=== PATIENT | female | born 1960 | race Caucasian/White ===

== ENCOUNTER 2017-12-14 17:35 | Inpatient (IN) ==
[2017-12-15 05:29] LABS: Basophils # 0.1 10*3/uL (0.0-0.2); Basophils % 1.6 % (0.0-0.8); Eosinophils # 0.2 10*3/uL (0.0-0.87); Eosinophils % 3.9 % (0.00-10.9); Hematocrit 29.1 VOL% (35.7-47.0); Hemoglobin 9.7 GM/DL (12.0-16.0); Immature Granulocytes % 0.8 %; Immature Granulocytes Absolute 0.04 #; Lymphocytes # 1.2 10*3/uL (1.4-4.0); Lymphocytes % 23.3 % (21.3-54.2); Mean Corpuscular HGB Conc 33.3 GM/DL (32-36); Mean Corpuscular Hemoglobin 31 PG (27-34); Mean Corpuscular Volume 91.8 FL (87-102); Mean Platelet Volume 11.2 FL (9.6-12.0); Monocytes # 0.9 10*3/uL (0.11-0.8); Monocytes % 17.2 % (1.7-12.7); Neutrophils # 2.7 10*3/uL (1.4-7.4); Neutrophils % 53.2 % (38.7-73.9); Platelet Count 121 T/CUMM (130-400); Red Blood Count 3.17 MC/CUMM (3.8-5.5); White Blood Count 5.1 T/CUMM (4-12)
[2017-12-15 06:03] LABS: Blood Urea Nitrogen 16 MG/DL (7-18); Calcium 8.7 MG/DL (8.5-10.1); Glucose 144 MG/DL (74-106); Osmolality,Calculated 284.3 MOS/KG (273-304); Potassium 4.1 MMOL/L (3.5-5.1); Sodium 141 MMOL/L (136-145); Troponin I Only < 0.015 NG/ML (0.00-0.045)
[2017-12-15 06:07] LABS: Band Neutrophils 5 % (0-10); Eosinophils 2 % (0-10); Lymphocytes 23 % (20-55); Myelocytes 1 %; Segmented Neutrophils 60 % (50-85); Total Cells Counted 100
[2017-12-15 06:08] LABS: Anisocytosis 1+; Platelet Estimate Adequate
[2017-12-15 09:49] LABS: INR 1.1
[2017-12-15 10:14] LABS: Albumin 3.4 G/DL (3.4-5.0); Bilirubin,Direct 0.33 MG/DL (0.0-0.20); Bilirubin,Total 1.3 MG/DL (0.2-1.0); Total Protein 7.3 G/DL (6.4-8.3)
[2017-12-16 06:09] LABS: Albumin 3.3 G/DL (3.4-5.0); Bilirubin,Total 1.1 MG/DL (0.2-1.0); Osmolality,Calculated 282.4 MOS/KG (273-304); Potassium 3.8 MMOL/L (3.5-5.1); Total Protein 7.1 G/DL (6.4-8.3)
[2017-12-16 18:48] LABS: % Iron Saturation 23.8 % (18-50)
[2017-12-16 19:43] LABS: Hepatitis A Ab IgM Quant 0.29 Index; Hepatitis A Ab IgM Result Negative (Negative); Hepatitis B Core IgM Quant < 0.05 Index; Hepatitis B Core IgM Result Negative (Negative); Hepatitis B Surface Ag Quant < 0.10 Index; Hepatitis B Surface Ag Result Negative (Negative); Hepatitis C Virus Ab Quant 0.03 Index; Hepatitis C Virus Ab Result Negative (Negative)
[2017-12-17 09:50] LABS: Eosinophils # 0.1 10*3/uL (0.0-0.87); Eosinophils % 3.1 % (0.00-10.9); Hematocrit 29.8 VOL% (35.7-47.0); Hemoglobin 9.8 GM/DL (12.0-16.0); Immature Granulocytes Absolute 0.04 #; Lymphocytes # 0.9 10*3/uL (1.4-4.0); Lymphocytes % 20.7 % (21.3-54.2); Mean Corpuscular HGB Conc 32.9 GM/DL (32-36); Mean Corpuscular Hemoglobin 30 PG (27-34); Mean Corpuscular Volume 92.3 FL (87-102); Mean Platelet Volume 11.2 FL (9.6-12.0); Monocytes # 0.7 10*3/uL (0.11-0.8); Neutrophils # 2.5 10*3/uL (1.4-7.4); Neutrophils % 58.2 % (38.7-73.9); Platelet Count 102 T/CUMM (130-400); Red Blood Count 3.23 MC/CUMM (3.8-5.5); Red Cell Distribution Width 15.2 % (9.3-17.3); White Blood Count 4.2 T/CUMM (4-12)
[2017-12-17 10:17] LABS: Band Neutrophils 5 % (0-10); Eosinophils 2 % (0-10); Lymphocytes 21 % (20-55); Segmented Neutrophils 58 % (50-85); Total Cells Counted 100
[2017-12-17 10:18] LABS: Platelet Estimate Normal
[2017-12-17 10:20] LABS: Polychromasia Few
[2017-12-17 10:21] LABS: Spherocytes 1+
[2017-12-18 00:40] LABS: Basophils % 0.7 % (0.0-0.8); Eosinophils % 0.2 % (0.00-10.9); Hematocrit 29.4 VOL% (35.7-47.0); Hemoglobin 9.8 GM/DL (12.0-16.0); Immature Granulocytes % 0.5 %; Immature Granulocytes Absolute 0.03 #; Lymphocytes # 0.3 10*3/uL (1.4-4.0); Lymphocytes % 4.9 % (21.3-54.2); Mean Corpuscular HGB Conc 33.3 GM/DL (32-36); Mean Corpuscular Hemoglobin 30 PG (27-34); Mean Corpuscular Volume 90.2 FL (87-102); Mean Platelet Volume 11.9 FL (9.6-12.0); Monocytes # 0.6 10*3/uL (0.11-0.8); Monocytes % 9.5 % (1.7-12.7); Neutrophils # 4.9 10*3/uL (1.4-7.4); Neutrophils % 84.2 % (38.7-73.9); Platelet Count 101 T/CUMM (130-400); Red Blood Count 3.26 MC/CUMM (3.8-5.5); Red Cell Distribution Width 15.5 % (9.3-17.3); White Blood Count 5.8 T/CUMM (4-12)
[2017-12-18 00:53] LABS: Calcium 8.8 MG/DL (8.5-10.1); Osmolality,Calculated 284.3 MOS/KG (273-304); Potassium 3.8 MMOL/L (3.5-5.1)
[2017-12-18 00:59] LABS: Lactic Acid 1.3 MMOL/L (0.4-2.0)
[2017-12-18 01:25] LABS: ABG Base Excess -2.5 MMOL/L (-2.5-2.5); ABG HCO3 21.9 MMOL/L (20-26); ABG PCO2 34.4 MM HG (35-48); ABG PH 7.407 (7.35-7.45); ABG PO2 41.6 MM HG (80-95); ABG TCO2 19.8 MMOL/L (23-27); Allen Test Positive; Pt O2 Delivery Device Room Air
[2017-12-18 01:59] LABS: Band Neutrophils 2 % (0-10); Lymphocytes 10 % (20-55); Segmented Neutrophils 87 % (50-85); Total Cells Counted 100
[2017-12-18 02:00] LABS: Platelet Estimate Decreased
[2017-12-18 02:23] LABS: ABG Base Excess -3.5 MMOL/L (-2.5-2.5); ABG HCO3 21.5 MMOL/L (20-26); ABG Oxygen Saturation 97.3 % (95-100); ABG PH 7.441 (7.35-7.45); ABG PO2 85.4 MM HG (80-95)
[2017-12-18 04:30] LABS: Apearance,Urine CLEAR (Clear); Bacteria,Urine Occasional /HPF (Few); Bilirubin,Urine Negative (Negative); Blood, Urine Negative (Negative); Glucose,Urine (UA) Negative (Negative); Ketones,Urine Negative (Negative); Mucus,Urine Occasional /LPF (Occasional); Nitrite,Urine Negative (Negative); Protein,Urine Negative; RBC,Urine <1 /HPF (0-4); Squamous Epithelial Cell,Urine Occasional /HPF (0-10); Urine Color Yellow (Yellow); Urine Specific Gravity 1.014 (1.001-1.035); Urine Urobilinogen < 2.0 EU/DL (0.2-1.0); WBC,Urine 1 /HPF (0-6)
[2017-12-18 05:42] LABS: Basophils % 0.7 % (0.0-0.8); Hematocrit 28.3 VOL% (35.7-47.0); Hemoglobin 9.4 GM/DL (12.0-16.0); Immature Granulocytes % 0.9 %; Immature Granulocytes Absolute 0.05 #; Lymphocytes # 0.3 10*3/uL (1.4-4.0); Mean Corpuscular HGB Conc 33.2 GM/DL (32-36); Mean Corpuscular Hemoglobin 30 PG (27-34); Mean Corpuscular Volume 90.7 FL (87-102); Mean Platelet Volume 11.2 FL (9.6-12.0); Monocytes # 0.6 10*3/uL (0.11-0.8); Monocytes % 10.4 % (1.7-12.7); Neutrophils # 4.4 10*3/uL (1.4-7.4); Red Blood Count 3.12 MC/CUMM (3.8-5.5); Red Cell Distribution Width 15.4 % (9.3-17.3); White Blood Count 5.4 T/CUMM (4-12)
[2017-12-18 05:46] LABS: Platelet Count 93 T/CUMM (130-400)
[2017-12-18 06:00] LABS: Calcium 8.8 MG/DL (8.5-10.1); Osmolality,Calculated 285.3 MOS/KG (273-304); Potassium 3.4 MMOL/L (3.5-5.1)
[2017-12-18 06:06] LABS: Hypochromasia 1+; Ovalocytes Slight; Platelet Estimate Decreased
[2017-12-18 12:01] LABS: ABG Base Excess -7.2 MMOL/L (-2.5-2.5); ABG HCO3 18.6 MMOL/L (20-26); ABG PCO2 32.5 MM HG (35-48); ABG PH 7.344 (7.35-7.45); ABG TCO2 16.3 MMOL/L (23-27)
[2017-12-19 04:54] LABS: Basophils # 0.1 10*3/uL (0.0-0.2); Eosinophils % 0.2 % (0.00-10.9); Hematocrit 28.3 VOL% (35.7-47.0); Hemoglobin 9.4 GM/DL (12.0-16.0); Immature Granulocytes Absolute 0.05 #; Lymphocytes # 0.4 10*3/uL (1.4-4.0); Lymphocytes % 7.4 % (21.3-54.2); Mean Corpuscular HGB Conc 33.2 GM/DL (32-36); Mean Corpuscular Hemoglobin 30 PG (27-34); Mean Corpuscular Volume 90.4 FL (87-102); Mean Platelet Volume 11.4 FL (9.6-12.0); Monocytes # 0.8 10*3/uL (0.11-0.8); Monocytes % 15.9 % (1.7-12.7); Neutrophils # 3.6 10*3/uL (1.4-7.4); Neutrophils % 74.5 % (38.7-73.9); Red Blood Count 3.13 MC/CUMM (3.8-5.5); Red Cell Distribution Width 15.6 % (9.3-17.3); White Blood Count 4.8 T/CUMM (4-12)
[2017-12-19 04:59] LABS: ABG Base Excess -5.6 MMOL/L (-2.5-2.5); ABG HCO3 19.8 MMOL/L (20-26); ABG PCO2 33.4 MM HG (35-48); ABG PH 7.364 (7.35-7.45); ABG TCO2 17.5 MMOL/L (23-27); Allen Test Positive; Pt O2 Delivery Device Ventilator
[2017-12-19 04:59] LABS: Platelet Count 89 T/CUMM (130-400)
[2017-12-19 05:14] LABS: Band Neutrophils 3 % (0-10); Hypochromasia 1+; Lymphocytes 6 % (20-55); Platelet Estimate Decreased; Segmented Neutrophils 76 % (50-85); Total Cells Counted 100
[2017-12-19 05:18] LABS: Bilirubin,Total 1.9 MG/DL (0.2-1.0); Calcium 8.4 MG/DL (8.5-10.1); Osmolality,Calculated 292.8 MOS/KG (273-304); Potassium 3.3 MMOL/L (3.5-5.1); Total Protein 6.6 G/DL (6.4-8.3)
[2017-12-20 04:25] LABS: ABG Base Excess -4.8 MMOL/L (-2.5-2.5); ABG HCO3 18.9 MMOL/L (20-26); ABG Oxygen Saturation 98.6 % (95-100); ABG PH 7.417 (7.35-7.45); ABG PO2 171.7 MM HG (80-95); ABG TCO2 19.8 MMOL/L (23-27); Allen Test Positive; Pt O2 Delivery Device Ventilator
[2017-12-20 05:15] LABS: Basophils % 0.5 % (0.0-0.8); Eosinophils # 0.1 10*3/uL (0.0-0.87); Hematocrit 27.3 VOL% (35.7-47.0); Hemoglobin 9.2 GM/DL (12.0-16.0); Immature Granulocytes % 0.7 %; Immature Granulocytes Absolute 0.03 #; Lymphocytes # 0.9 10*3/uL (1.4-4.0); Lymphocytes % 21.7 % (21.3-54.2); Mean Corpuscular HGB Conc 33.7 GM/DL (32-36); Mean Corpuscular Hemoglobin 31 PG (27-34); Mean Platelet Volume 11.3 FL (9.6-12.0); Monocytes # 0.7 10*3/uL (0.11-0.8); Monocytes % 16.3 % (1.7-12.7); NRBC # 0.03 10*3/uL; Neutrophils # 2.4 10*3/uL (1.4-7.4); Neutrophils % 58.8 % (38.7-73.9); White Blood Count 4.1 T/CUMM (4-12)
[2017-12-20 05:22] LABS: Platelet Count 89 T/CUMM (130-400)
[2017-12-20 05:38] LABS: Calcium 8.2 MG/DL (8.5-10.1); Osmolality,Calculated 294.4 MOS/KG (273-304); Potassium 3.3 MMOL/L (3.5-5.1)
[2017-12-20 05:49] LABS: Band Neutrophils 9 % (0-10); Eosinophils 2 % (0-10); Lymphocytes 17 % (20-55); Metamyelocytes 2 %; Segmented Neutrophils 54 % (50-85); Total Cells Counted 100
[2017-12-20 05:50] LABS: Hypochromasia Slight; Platelet Estimate Decreased; Polychromasia Few
[2017-12-20 07:40] LABS: ABG Base Excess -4.1 MMOL/L (-2.5-2.5); ABG Oxygen Saturation 99.8 % (95-100); ABG PCO2 34.2 MM HG (35-48); ABG PH 7.382 (7.35-7.45); ABG TCO2 18.7 MMOL/L (23-27); Pt O2 Delivery Device Ventilator
[2017-12-20 08:58] LABS: ABG Base Excess -4.9 MMOL/L (-2.5-2.5); ABG HCO3 20.4 MMOL/L (20-26); ABG PCO2 35.7 MM HG (35-48); ABG PH 7.358 (7.35-7.45); ABG TCO2 18.5 MMOL/L (23-27); Allen Test Positive
[2017-12-20 17:41] LABS: Calcium 8.4 MG/DL (8.5-10.1); Osmolality,Calculated 294.4 MOS/KG (273-304); Potassium 3.8 MMOL/L (3.5-5.1)
[2017-12-21 03:51] LABS: Basophils % 0.5 % (0.0-0.8); Eosinophils # 0.1 10*3/uL (0.0-0.87); Eosinophils % 2.3 % (0.00-10.9); Hematocrit 27.7 VOL% (35.7-47.0); Hemoglobin 9.2 GM/DL (12.0-16.0); Immature Granulocytes % 0.7 %; Immature Granulocytes Absolute 0.04 #; Lymphocytes # 0.8 10*3/uL (1.4-4.0); Lymphocytes % 14.6 % (21.3-54.2); Mean Corpuscular HGB Conc 33.2 GM/DL (32-36); Mean Corpuscular Hemoglobin 30 PG (27-34); Mean Corpuscular Volume 90.2 FL (87-102); Mean Platelet Volume 11.5 FL (9.6-12.0); Monocytes # 0.9 10*3/uL (0.11-0.8); Monocytes % 15.3 % (1.7-12.7); NRBC # 0.02 10*3/uL; Neutrophils # 3.9 10*3/uL (1.4-7.4); Neutrophils % 66.6 % (38.7-73.9); Red Blood Count 3.07 MC/CUMM (3.8-5.5); Red Cell Distribution Width 15.9 % (9.3-17.3); White Blood Count 5.8 T/CUMM (4-12)
[2017-12-21 03:53] LABS: Platelet Count 91 T/CUMM (130-400)
[2017-12-21 04:15] LABS: Calcium 8.5 MG/DL (8.5-10.1); Osmolality,Calculated 290.6 MOS/KG (273-304); Potassium 3.7 MMOL/L (3.5-5.1)
[2017-12-22 04:16] LABS: Basophils % 0.6 % (0.0-0.8); Eosinophils # 0.2 10*3/uL (0.0-0.87); Hemoglobin 8.4 GM/DL (12.0-16.0); Immature Granulocytes % 1.1 %; Immature Granulocytes Absolute 0.07 #; Lymphocytes # 1.2 10*3/uL (1.4-4.0); Lymphocytes % 19.6 % (21.3-54.2); Mean Corpuscular HGB Conc 32.3 GM/DL (32-36); Mean Corpuscular Hemoglobin 30 PG (27-34); Mean Corpuscular Volume 92.9 FL (87-102); Mean Platelet Volume 11.6 FL (9.6-12.0); Monocytes % 16.4 % (1.7-12.7); Neutrophils # 3.7 10*3/uL (1.4-7.4); Neutrophils % 59.3 % (38.7-73.9); Red Cell Distribution Width 15.7 % (9.3-17.3); White Blood Count 6.3 T/CUMM (4-12)
[2017-12-22 04:42] LABS: Calcium 8.1 MG/DL (8.5-10.1); Osmolality,Calculated 285.1 MOS/KG (273-304); Potassium 3.1 MMOL/L (3.5-5.1)
[2017-12-22 04:58] LABS: Platelet Count 96 T/CUMM (130-400)
[2017-12-22 09:03] LABS: Eosinophils 7 % (0-10); Lymphocytes 14 % (20-55); Platelet Estimate Decreased; Polychromasia Slight; Segmented Neutrophils 66 % (50-85); Total Cells Counted 100
[2017-12-23 04:53] LABS: Basophils % 0.5 % (0.0-0.8); Eosinophils # 0.2 10*3/uL (0.0-0.87); Eosinophils % 3.6 % (0.00-10.9); Hematocrit 24.7 VOL% (35.7-47.0); Immature Granulocytes % 1.4 %; Immature Granulocytes Absolute 0.08 #; Lymphocytes # 1.2 10*3/uL (1.4-4.0); Lymphocytes % 19.8 % (21.3-54.2); Mean Corpuscular HGB Conc 32.4 GM/DL (32-36); Mean Corpuscular Hemoglobin 30 PG (27-34); Mean Corpuscular Volume 93.6 FL (87-102); Mean Platelet Volume 11.5 FL (9.6-12.0); Monocytes # 0.8 10*3/uL (0.11-0.8); Monocytes % 13.9 % (1.7-12.7); Neutrophils # 3.6 10*3/uL (1.4-7.4); Neutrophils % 60.8 % (38.7-73.9); Platelet Count 102 T/CUMM (130-400); Red Blood Count 2.64 MC/CUMM (3.8-5.5); Red Cell Distribution Width 15.9 % (9.3-17.3); White Blood Count 5.9 T/CUMM (4-12)
[2017-12-23 05:40] LABS: Calcium 8.3 MG/DL (8.5-10.1); Osmolality,Calculated 287.8 MOS/KG (273-304); Potassium 3.7 MMOL/L (3.5-5.1)
[2017-12-24 03:45] LABS: Basophils % 0.6 % (0.0-0.8); Eosinophils # 0.3 10*3/uL (0.0-0.87); Eosinophils % 3.6 % (0.00-10.9); Hematocrit 27.6 VOL% (35.7-47.0); Hemoglobin 9.5 GM/DL (12.0-16.0); Immature Granulocytes % 2.1 %; Immature Granulocytes Absolute 0.15 #; Lymphocytes # 1.2 10*3/uL (1.4-4.0); Lymphocytes % 16.3 % (21.3-54.2); Mean Corpuscular HGB Conc 34.4 GM/DL (32-36); Mean Corpuscular Hemoglobin 31 PG (27-34); Mean Corpuscular Volume 89.3 FL (87-102); Mean Platelet Volume 11.4 FL (9.6-12.0); Monocytes % 13.6 % (1.7-12.7); Neutrophils # 4.6 10*3/uL (1.4-7.4); Neutrophils % 63.8 % (38.7-73.9); Platelet Count 120 T/CUMM (130-400); Red Blood Count 3.09 MC/CUMM (3.8-5.5); Red Cell Distribution Width 15.4 % (9.3-17.3); White Blood Count 7.2 T/CUMM (4-12)
[2017-12-24 04:15] LABS: Calcium 8.4 MG/DL (8.5-10.1); Potassium 3.4 MMOL/L (3.5-5.1)
[2017-12-25 04:18] LABS: Basophils # 0.1 10*3/uL (0.0-0.2); Basophils % 0.7 % (0.0-0.8); Eosinophils # 0.2 10*3/uL (0.0-0.87); Eosinophils % 3.5 % (0.00-10.9); Hematocrit 27.9 VOL% (35.7-47.0); Hemoglobin 9.3 GM/DL (12.0-16.0); Immature Granulocytes % 3.4 %; Immature Granulocytes Absolute 0.23 #; Lymphocytes # 1.2 10*3/uL (1.4-4.0); Lymphocytes % 17.6 % (21.3-54.2); Mean Corpuscular HGB Conc 33.3 GM/DL (32-36); Mean Corpuscular Hemoglobin 31 PG (27-34); Mean Corpuscular Volume 91.8 FL (87-102); Mean Platelet Volume 11.5 FL (9.6-12.0); Monocytes # 0.9 10*3/uL (0.11-0.8); Monocytes % 13.3 % (1.7-12.7); Neutrophils # 4.2 10*3/uL (1.4-7.4); Neutrophils % 61.5 % (38.7-73.9); Platelet Count 130 T/CUMM (130-400); Red Blood Count 3.04 MC/CUMM (3.8-5.5); Red Cell Distribution Width 15.9 % (9.3-17.3); White Blood Count 6.8 T/CUMM (4-12)
[2017-12-25 04:39] LABS: Calcium 8.1 MG/DL (8.5-10.1); Osmolality,Calculated 283.1 MOS/KG (273-304); Potassium 3.4 MMOL/L (3.5-5.1)
[2017-12-25 07:57] LABS: ABG Base Excess -6.7 MMOL/L (-2.5-2.5); ABG PCO2 35.6 MM HG (35-48); ABG PH 7.326 (7.35-7.45); Ionized Calcium Arterial 1.23 MMOL/L (1.21-1.46); Potassium Heart/CVR 3.6 MMOL/L (3.5-5.1)
[2017-12-25 07:58] LABS: Glucose Heart Surgery 122 MG/DL (74-106); Hematocrit Heart Surgery 31.4 PERCENT (37-47); Hemoglobin Heart Surgery 10.1 G/DL (12.0-16.0); PCO2 Patient Temp Arterial 35.6 MMHG; PH Patient Temp Arterial 7.326; Patient Temperature 37 CELCIUS; Sodium Heart/CVR 140 MMOL/L (135-145)
[2017-12-25 08:38] LABS: Amorphous Crystals,Urine Occasional /HPF (Few); Apearance,Urine CLOUDY (Clear); Bilirubin,Urine Negative (Negative); Blood, Urine Negative (Negative); Glucose,Urine (UA) Negative (Negative); Ketones,Urine Negative (Negative); Mucus,Urine Occasional /LPF (Occasional); Nitrite,Urine Negative (Negative); Protein,Urine Negative; Squamous Epithelial Cell,Urine Occasional /HPF (0-10); Urine Color Yellow (Yellow); Urine Specific Gravity 1.015 (1.001-1.035); Urine Urobilinogen < 2.0 EU/DL (0.2-1.0); WBC,Urine 1 /HPF (0-6)
[2017-12-25 08:50] LABS: Hematocrit Heart Surgery 18.1 PERCENT (37-47); PCO2 Patient Temp Venous 30.7 MM HG; PH Patient Temp Venous 7.434; Potassium Heart/CVR 4.5 MMOL/L (3.5-5.1); VBG Base Excess -3.1 MEQ/L (0-4); VBG HCO3 21.6 MEQ/L (24-28); VBG Oxygen Saturation 82.2 %; VBG PCO2 33.8 MMHG (41-51); VBG PH 7.405; VBG PO2 46.9 MMHG (17-40)
[2017-12-25 08:51] LABS: Hemoglobin Heart Surgery 5.7 G/DL (12.0-16.0)
[2017-12-25 09:19] LABS: Hemoglobin Heart Surgery 7.8 G/DL (12.0-16.0); PCO2 Patient Temp Venous 29.7 MM HG; PH Patient Temp Venous 7.477; PO2 Patient Temp Venous 49.8 MM HG; VBG Base Excess -1.9 MEQ/L (0-4); VBG HCO3 22.1 MEQ/L (24-28); VBG PCO2 33.9 MMHG (41-51); VBG PH 7.432; VBG PO2 61.3 MMHG (17-40)
[2017-12-25 09:50] LABS: Hematocrit Heart Surgery 27.9 PERCENT (37-47); PCO2 Patient Temp Venous 30.9 MM HG; PH Patient Temp Venous 7.391; PO2 Patient Temp Venous 50.2 MM HG; Potassium Heart/CVR 4.2 MMOL/L (3.5-5.1); VBG Base Excess -5.4 MEQ/L (0-4); VBG HCO3 19.8 MEQ/L (24-28); VBG Oxygen Saturation 89.6 %; VBG PCO2 35.7 MMHG (41-51); VBG PH 7.349; VBG PO2 61.2 MMHG (17-40)
[2017-12-25 10:18] LABS: Hematocrit Heart Surgery 27.2 PERCENT (37-47); Hemoglobin Heart Surgery 8.7 G/DL (12.0-16.0); PH Patient Temp Venous 7.332; Potassium Heart/CVR 4.5 MMOL/L (3.5-5.1); VBG Base Excess -5.3 MEQ/L (0-4); VBG HCO3 19.8 MEQ/L (24-28); VBG Oxygen Saturation 79.4 %; VBG PH 7.332
[2017-12-25 10:58] LABS: ABG Base Excess -4.3 MMOL/L (-2.5-2.5); ABG HCO3 20.8 MMOL/L (20-26); ABG PH 7.356 (7.35-7.45); ABG TCO2 19.5 MMOL/L (23-27); Glucose Heart Surgery 289 MG/DL (74-106); Hemoglobin Heart Surgery 7.7 G/DL (12.0-16.0); PH Patient Temp Arterial 7.356; Patient Temperature 37 CELCIUS; Potassium Heart/CVR 4.1 MMOL/L (3.5-5.1); Sodium Heart/CVR 139 MMOL/L (135-145)
[2017-12-25 13:01] LABS: ABG Base Excess -3.2 MMOL/L (-2.5-2.5); ABG HCO3 21.7 MMOL/L (20-26); ABG Oxygen Saturation 98.7 % (95-100); ABG PCO2 37.1 MM HG (35-48); ABG PH 7.372 (7.35-7.45); ABG TCO2 19.4 MMOL/L (23-27); Glucose Heart Surgery 198 MG/DL (74-106); Hematocrit Heart Surgery 34.4 PERCENT (37-47); Hemoglobin Heart Surgery 11.1 G/DL (12.0-16.0); Potassium Heart/CVR 3.4 MMOL/L (3.5-5.1)
[2017-12-25 13:07] LABS: Basophils % 0.4 % (0.0-0.8); Eosinophils # 0.1 10*3/uL (0.0-0.87); Eosinophils % 0.6 % (0.00-10.9); Hematocrit 21.6 VOL% (35.7-47.0); Hemoglobin 7.2 GM/DL (12.0-16.0); Immature Granulocytes % 5.3 %; Immature Granulocytes Absolute 0.54 #; Lymphocytes # 0.6 10*3/uL (1.4-4.0); Lymphocytes % 5.8 % (21.3-54.2); Mean Corpuscular HGB Conc 33.3 GM/DL (32-36); Mean Corpuscular Hemoglobin 31 PG (27-34); Mean Corpuscular Volume 91.5 FL (87-102); Mean Platelet Volume 10.8 FL (9.6-12.0); Monocytes # 1.1 10*3/uL (0.11-0.8); Monocytes % 11.1 % (1.7-12.7); Neutrophils # 7.8 10*3/uL (1.4-7.4); Neutrophils % 76.8 % (38.7-73.9); Platelet Count 117 T/CUMM (130-400); Red Blood Count 2.36 MC/CUMM (3.8-5.5); Red Cell Distribution Width 15.8 % (9.3-17.3); White Blood Count 10.1 T/CUMM (4-12)
[2017-12-25 13:21] LABS: Blood Urea Nitrogen 11 MG/DL (7-18); Calcium 9.7 MG/DL (8.5-10.1); Glucose 195 MG/DL (74-106); Osmolality,Calculated 289.8 MOS/KG (273-304); Potassium 3.4 MMOL/L (3.5-5.1); Sodium 144 MMOL/L (136-145)
[2017-12-25 13:25] LABS: Lactic Acid 4.2 MMOL/L (0.4-2.0)
[2017-12-25 13:33] LABS: Eosinophils 2 % (0-10); Lymphocytes 7 % (20-55); Segmented Neutrophils 81 % (50-85); Total Cells Counted 100
[2017-12-25 13:34] LABS: Anisocytosis Slight; Hypochromasia Slight; INR 1.4; PT Patient Result 14.4 SECS; Partial Thromboplastin Time 27.4 SECS (0-40); Platelet Estimate Adequate
[2017-12-25 15:02] LABS: ABG Base Excess -3.4 MMOL/L (-2.5-2.5); ABG HCO3 21.5 MMOL/L (20-26); ABG Oxygen Saturation 95.8 % (95-100); ABG PCO2 34.3 MM HG (35-48); ABG PH 7.395 (7.35-7.45); ABG PO2 78.8 MM HG (80-95); ABG TCO2 19.9 MMOL/L (23-27); Glucose Heart Surgery 166 MG/DL (74-106); Hematocrit Heart Surgery 21.1 PERCENT (37-47); Hemoglobin Heart Surgery 6.7 G/DL (12.0-16.0); Potassium Heart/CVR 3.8 MMOL/L (3.5-5.1)
[2017-12-25 17:08] LABS: ABG Base Excess -3.1 MMOL/L (-2.5-2.5); ABG HCO3 20.8 MMOL/L (20-26); ABG Oxygen Saturation 93.6 % (95-100); ABG PCO2 31.9 MM HG (35-48); ABG PH 7.432 (7.35-7.45); ABG PO2 79.3 MM HG (80-95); ABG TCO2 21.8 MMOL/L (23-27); Glucose Heart Surgery 124 MG/DL (74-106); Hemoglobin Heart Surgery 7.1 G/DL (12.0-16.0); Potassium Heart/CVR 3.3 MMOL/L (3.5-5.1)
[2017-12-25 17:44] LABS: Lactic Acid 3.5 MMOL/L (0.4-2.0)
[2017-12-25 21:44] LABS: ABG Base Excess -3.4 MMOL/L (-2.5-2.5); ABG HCO3 21.5 MMOL/L (20-26); ABG Oxygen Saturation 96.2 % (95-100); ABG PH 7.371 (7.35-7.45); ABG PO2 80.9 MM HG (80-95); ABG TCO2 20.1 MMOL/L (23-27); Glucose Heart Surgery 97 MG/DL (74-106); Hematocrit Heart Surgery 24.5 PERCENT (37-47); Hemoglobin Heart Surgery 7.9 G/DL (12.0-16.0); Potassium Heart/CVR 4.1 MMOL/L (3.5-5.1)
[2017-12-26 04:25] LABS: Basophils % 0.1 % (0.0-0.8); Hematocrit 23.4 VOL% (35.7-47.0); Hemoglobin 7.7 GM/DL (12.0-16.0); Immature Granulocytes Absolute 0.14 #; Lymphocytes # 0.7 10*3/uL (1.4-4.0); Mean Corpuscular HGB Conc 32.9 GM/DL (32-36); Mean Corpuscular Hemoglobin 30 PG (27-34); Mean Corpuscular Volume 91.4 FL (87-102); Mean Platelet Volume 11.7 FL (9.6-12.0); Monocytes % 7.4 % (1.7-12.7); Neutrophils # 11.6 10*3/uL (1.4-7.4); Neutrophils % 86.5 % (38.7-73.9); Red Blood Count 2.56 MC/CUMM (3.8-5.5); White Blood Count 13.4 T/CUMM (4-12)
[2017-12-26 04:27] LABS: Platelet Count 88 T/CUMM (130-400)
[2017-12-26 04:59] LABS: Calcium 8.6 MG/DL (8.5-10.1)
[2017-12-26 05:08] LABS: Hypochromasia Slight
[2017-12-26 05:09] LABS: Microcytosis 2+; Ovalocytes Few; Platelet Estimate Decreased
[2017-12-27 05:27] LABS: Basophils % 0.2 % (0.0-0.8); Eosinophils % 0.2 % (0.00-10.9); Hematocrit 20.9 VOL% (35.7-47.0); Hemoglobin 6.9 GM/DL (12.0-16.0); Immature Granulocytes % 2.2 %; Immature Granulocytes Absolute 0.26 #; Lymphocytes # 1.1 10*3/uL (1.4-4.0); Lymphocytes % 9.2 % (21.3-54.2); Mean Corpuscular Hemoglobin 31 PG (27-34); Mean Corpuscular Volume 93.3 FL (87-102); Mean Platelet Volume 12.4 FL (9.6-12.0); Monocytes # 1.8 10*3/uL (0.11-0.8); Monocytes % 14.7 % (1.7-12.7); NRBC # 0.03 10*3/uL; Neutrophils # 8.9 10*3/uL (1.4-7.4); Neutrophils % 73.5 % (38.7-73.9); Platelet Count 80 T/CUMM (130-400); Red Blood Count 2.24 MC/CUMM (3.8-5.5); Red Cell Distribution Width 16.2 % (9.3-17.3); White Blood Count 12.1 T/CUMM (4-12)
[2017-12-27 05:45] LABS: Calcium 7.6 MG/DL (8.5-10.1); Osmolality,Calculated 293.8 MOS/KG (273-304); Potassium 3.8 MMOL/L (3.5-5.1)
[2017-12-27 05:49] LABS: Albumin 2.4 G/DL (3.4-5.0); Calcium 7.6 MG/DL (8.5-10.1); Potassium 3.8 MMOL/L (3.5-5.1); Total Protein 5.2 G/DL (6.4-8.3)
[2017-12-27 06:01] LABS: Band Neutrophils 6 % (0-10); Hypochromasia 1+; Lymphocytes 12 % (20-55); Ovalocytes Slight; Platelet Estimate Decreased; Segmented Neutrophils 73 % (50-85); Total Cells Counted 100
[2017-12-27 06:02] LABS: Microcytosis 1+
[2017-12-28 05:02] LABS: Basophils % 0.3 % (0.0-0.8); Eosinophils # 0.1 10*3/uL (0.0-0.87); Eosinophils % 0.7 % (0.00-10.9); Hematocrit 27.1 VOL% (35.7-47.0); Immature Granulocytes % 1.5 %; Immature Granulocytes Absolute 0.18 #; Lymphocytes # 1.1 10*3/uL (1.4-4.0); Lymphocytes % 9.1 % (21.3-54.2); Mean Corpuscular HGB Conc 33.2 GM/DL (32-36); Mean Corpuscular Hemoglobin 30 PG (27-34); Mean Corpuscular Volume 88.9 FL (87-102); Mean Platelet Volume 11.9 FL (9.6-12.0); Monocytes # 1.8 10*3/uL (0.11-0.8); Monocytes % 14.8 % (1.7-12.7); NRBC # 0.02 10*3/uL; Neutrophils # 8.8 10*3/uL (1.4-7.4); Neutrophils % 73.6 % (38.7-73.9); Platelet Count 85 T/CUMM (130-400); Red Blood Count 3.05 MC/CUMM (3.8-5.5)
[2017-12-28 05:14] LABS: Calcium 8.1 MG/DL (8.5-10.1); Osmolality,Calculated 290.1 MOS/KG (273-304); Potassium 3.8 MMOL/L (3.5-5.1)
[2017-12-28 05:18] LABS: Albumin 2.5 G/DL (3.4-5.0); Osmolality,Calculated 290.1 MOS/KG (273-304); Potassium 3.8 MMOL/L (3.5-5.1); Total Protein 5.6 G/DL (6.4-8.3)
[2017-12-28 07:51] LABS: Anisocytosis 1+; Band Neutrophils 7 % (0-10); Basophilic Stippling Slight; Lymphocytes 12 % (20-55); Platelet Estimate Decreased; Segmented Neutrophils 68 % (50-85); Total Cells Counted 100
[2017-12-29 06:01] LABS: Basophils % 0.3 % (0.0-0.8); Eosinophils # 0.2 10*3/uL (0.0-0.87); Eosinophils % 1.8 % (0.00-10.9); Hemoglobin 9.1 GM/DL (12.0-16.0); Immature Granulocytes % 1.5 %; Immature Granulocytes Absolute 0.17 #; Lymphocytes % 9.1 % (21.3-54.2); Mean Corpuscular HGB Conc 33.7 GM/DL (32-36); Mean Corpuscular Hemoglobin 30 PG (27-34); Mean Corpuscular Volume 88.8 FL (87-102); Mean Platelet Volume 11.9 FL (9.6-12.0); Monocytes # 1.6 10*3/uL (0.11-0.8); Monocytes % 13.8 % (1.7-12.7); Neutrophils # 8.4 10*3/uL (1.4-7.4); Neutrophils % 73.5 % (38.7-73.9); Platelet Count 77 T/CUMM (130-400); Red Blood Count 3.04 MC/CUMM (3.8-5.5); Red Cell Distribution Width 15.7 % (9.3-17.3); White Blood Count 11.4 T/CUMM (4-12)
[2017-12-29 06:17] LABS: Calcium 8.1 MG/DL (8.5-10.1); Osmolality,Calculated 282.4 MOS/KG (273-304); Potassium 3.4 MMOL/L (3.5-5.1)
[2017-12-29 06:23] LABS: Platelet Estimate Decreased
[2017-12-29 06:24] LABS: Anisocytosis 1+; Poikilocytosis Slight; Polychromasia Slight
[2017-12-29 17:56] LABS: Apearance,Urine Slightly Hazy (Clear); Bilirubin,Urine Negative (Negative); Blood, Urine Negative (Negative); Glucose,Urine (UA) Negative (Negative); Hyaline Casts,Urine 11 /LPF (0-3); Ketones,Urine Negative (Negative); Nitrite,Urine Negative (Negative); Protein,Urine Negative; RBC,Urine <1 /HPF (0-4); Squamous Epithelial Cell,Urine Occasional /HPF (0-10); Urine Color Yellow (Yellow); Urine Specific Gravity 1.012 (1.001-1.035); Urine Urobilinogen < 2.0 EU/DL (0.2-1.0); WBC,Urine 8 /HPF (0-6)
[2017-12-30 05:14] LABS: Basophils % 0.3 % (0.0-0.8); Eosinophils # 0.3 10*3/uL (0.0-0.87); Eosinophils % 2.4 % (0.00-10.9); Hematocrit 27.9 VOL% (35.7-47.0); Hemoglobin 9.1 GM/DL (12.0-16.0); Immature Granulocytes % 1.1 %; Immature Granulocytes Absolute 0.13 #; Lymphocytes # 1.1 10*3/uL (1.4-4.0); Lymphocytes % 9.3 % (21.3-54.2); Mean Corpuscular HGB Conc 32.6 GM/DL (32-36); Mean Corpuscular Hemoglobin 30 PG (27-34); Mean Corpuscular Volume 90.9 FL (87-102); Mean Platelet Volume 11.9 FL (9.6-12.0); Monocytes # 1.8 10*3/uL (0.11-0.8); Monocytes % 14.5 % (1.7-12.7); Neutrophils # 8.9 10*3/uL (1.4-7.4); Neutrophils % 72.4 % (38.7-73.9); Platelet Count 85 T/CUMM (130-400); Red Blood Count 3.07 MC/CUMM (3.8-5.5); Red Cell Distribution Width 15.6 % (9.3-17.3); White Blood Count 12.2 T/CUMM (4-12)
[2017-12-30 05:25] LABS: Calcium 8.2 MG/DL (8.5-10.1); Osmolality,Calculated 280.8 MOS/KG (273-304); Potassium 4.1 MMOL/L (3.5-5.1)
[2017-12-30 05:28] LABS: Albumin 2.3 G/DL (3.4-5.0); Bilirubin,Direct 0.48 MG/DL (0.0-0.20); Bilirubin,Indirect 1.2 MG/DL (0.0-1.0); Bilirubin,Total 1.7 MG/DL (0.2-1.0); Total Protein 5.9 G/DL (6.4-8.3)
[2017-12-30 06:03] LABS: Eosinophils 3 % (0-10); Lymphocytes 8 % (20-55); Segmented Neutrophils 70 % (50-85); Total Cells Counted 100
[2017-12-30 06:04] LABS: Hypochromasia 1+; Microcytosis Slight; Platelet Estimate Decreased
[2017-12-31 05:18] LABS: Basophils # 0.1 10*3/uL (0.0-0.2); Basophils % 0.6 % (0.0-0.8); Eosinophils # 0.4 10*3/uL (0.0-0.87); Eosinophils % 3.6 % (0.00-10.9); Hematocrit 28.1 VOL% (35.7-47.0); Hemoglobin 9.3 GM/DL (12.0-16.0); Immature Granulocytes % 1.3 %; Immature Granulocytes Absolute 0.13 #; Lymphocytes # 1.2 10*3/uL (1.4-4.0); Lymphocytes % 11.8 % (21.3-54.2); Mean Corpuscular HGB Conc 33.1 GM/DL (32-36); Mean Corpuscular Hemoglobin 30 PG (27-34); Mean Corpuscular Volume 90.1 FL (87-102); Monocytes # 1.4 10*3/uL (0.11-0.8); Monocytes % 13.9 % (1.7-12.7); Neutrophils % 68.8 % (38.7-73.9); Platelet Count 105 T/CUMM (130-400); Red Blood Count 3.12 MC/CUMM (3.8-5.5); White Blood Count 10.1 T/CUMM (4-12)
[2018-01-01 04:18] LABS: Basophils # 0.1 10*3/uL (0.0-0.2); Basophils % 0.5 % (0.0-0.8); Eosinophils # 0.3 10*3/uL (0.0-0.87); Eosinophils % 2.7 % (0.00-10.9); Hematocrit 27.8 VOL% (35.7-47.0); Hemoglobin 9.1 GM/DL (12.0-16.0); Immature Granulocytes % 0.7 %; Immature Granulocytes Absolute 0.07 #; Mean Corpuscular HGB Conc 32.7 GM/DL (32-36); Mean Corpuscular Hemoglobin 30 PG (27-34); Mean Corpuscular Volume 91.1 FL (87-102); Mean Platelet Volume 11.7 FL (9.6-12.0); Monocytes # 1.2 10*3/uL (0.11-0.8); Neutrophils # 7.1 10*3/uL (1.4-7.4); Neutrophils % 74.1 % (38.7-73.9); Platelet Count 100 T/CUMM (130-400); Red Blood Count 3.05 MC/CUMM (3.8-5.5); Red Cell Distribution Width 15.8 % (9.3-17.3); White Blood Count 9.6 T/CUMM (4-12)
[2018-01-01 04:27] LABS: Calcium 8.1 MG/DL (8.5-10.1); Osmolality,Calculated 278.2 MOS/KG (273-304); Potassium 3.9 MMOL/L (3.5-5.1)
[2018-01-02 04:38] LABS: Basophils # 0.1 10*3/uL (0.0-0.2); Basophils % 0.5 % (0.0-0.8); Eosinophils # 0.3 10*3/uL (0.0-0.87); Hematocrit 26.6 VOL% (35.7-47.0); Hemoglobin 8.5 GM/DL (12.0-16.0); Immature Granulocytes % 0.9 %; Immature Granulocytes Absolute 0.09 #; Lymphocytes # 1.1 10*3/uL (1.4-4.0); Lymphocytes % 11.1 % (21.3-54.2); Mean Corpuscular Hemoglobin 30 PG (27-34); Mean Corpuscular Volume 92.4 FL (87-102); Monocytes # 1.4 10*3/uL (0.11-0.8); Monocytes % 13.8 % (1.7-12.7); Neutrophils # 6.9 10*3/uL (1.4-7.4); Neutrophils % 70.7 % (38.7-73.9); Platelet Count 115 T/CUMM (130-400); Red Blood Count 2.88 MC/CUMM (3.8-5.5); Red Cell Distribution Width 15.9 % (9.3-17.3); White Blood Count 9.8 T/CUMM (4-12)
[2018-01-02 05:06] LABS: Osmolality,Calculated 282.2 MOS/KG (273-304); Potassium 3.9 MMOL/L (3.5-5.1)
[2018-01-03 04:34] LABS: Basophils # 0.1 10*3/uL (0.0-0.2); Basophils % 0.7 % (0.0-0.8); Eosinophils # 0.2 10*3/uL (0.0-0.87); Eosinophils % 2.2 % (0.00-10.9); Hematocrit 25.3 VOL% (35.7-47.0); Immature Granulocytes % 1.2 %; Lymphocytes # 1.1 10*3/uL (1.4-4.0); Lymphocytes % 13.3 % (21.3-54.2); Mean Corpuscular HGB Conc 31.6 GM/DL (32-36); Mean Corpuscular Hemoglobin 30 PG (27-34); Mean Corpuscular Volume 93.7 FL (87-102); Mean Platelet Volume 11.9 FL (9.6-12.0); Monocytes # 1.2 10*3/uL (0.11-0.8); Monocytes % 14.2 % (1.7-12.7); Neutrophils # 5.8 10*3/uL (1.4-7.4); Neutrophils % 68.4 % (38.7-73.9); Platelet Count 130 T/CUMM (130-400); Red Cell Distribution Width 16.1 % (9.3-17.3); White Blood Count 8.5 T/CUMM (4-12)
[2018-01-03 04:51] LABS: Osmolality,Calculated 283.4 MOS/KG (273-304); Potassium 4.1 MMOL/L (3.5-5.1)
[2018-01-03 20:02] LABS: Hematocrit 31.3 VOL% (35.7-47.0)
[2018-01-03 21:08] LABS: ABG HCO3 15.1 MMOL/L (20-26); ABG Oxygen Saturation 99.9 % (95-100); ABG PCO2 28.7 MM HG (35-48); ABG PH 7.283 (7.35-7.45); ABG TCO2 12.4 MMOL/L (23-27); Allen Test Positive
[2018-01-03 21:31] LABS: Basophils # 0.1 10*3/uL (0.0-0.2); Basophils % 0.8 % (0.0-0.8); Eosinophils # 0.2 10*3/uL (0.0-0.87); Eosinophils % 2.3 % (0.00-10.9); Hematocrit 32.6 VOL% (35.7-47.0); Hemoglobin 10.5 GM/DL (12.0-16.0); Immature Granulocytes % 1.4 %; Immature Granulocytes Absolute 0.14 #; Lymphocytes # 1.1 10*3/uL (1.4-4.0); Lymphocytes % 11.4 % (21.3-54.2); Mean Corpuscular HGB Conc 32.2 GM/DL (32-36); Mean Corpuscular Hemoglobin 29 PG (27-34); Mean Corpuscular Volume 90.8 FL (87-102); Mean Platelet Volume 11.2 FL (9.6-12.0); Monocytes # 1.7 10*3/uL (0.11-0.8); Monocytes % 16.8 % (1.7-12.7); Neutrophils # 6.7 10*3/uL (1.4-7.4); Neutrophils % 67.3 % (38.7-73.9); Platelet Count 149 T/CUMM (130-400); Red Blood Count 3.59 MC/CUMM (3.8-5.5); Red Cell Distribution Width 16.7 % (9.3-17.3)
[2018-01-03 21:56] LABS: Lactic Acid 1.5 MMOL/L (0.4-2.0)
[2018-01-03 21:57] LABS: Albumin 2.9 G/DL (3.4-5.0); Calcium 8.1 MG/DL (8.5-10.1); Osmolality,Calculated 283.5 MOS/KG (273-304); Potassium 4.3 MMOL/L (3.5-5.1); Total Protein 7.8 G/DL (6.4-8.3)
[2018-01-03 22:11] LABS: Eosinophils 2 % (0-10); Lymphocytes 17 % (20-55); Platelet Estimate Adequate; Segmented Neutrophils 69 % (50-85); Total Cells Counted 100
[2018-01-03 23:13] LABS: ABG Base Excess -7.5 MMOL/L (-2.5-2.5); ABG HCO3 16.9 MMOL/L (20-26); ABG PCO2 31.3 MM HG (35-48); ABG PH 7.349 (7.35-7.45); ABG PO2 54.1 MM HG (80-95); ABG TCO2 17.8 MMOL/L (23-27)
[2018-01-03 23:16] LABS: ABG Oxygen Saturation 87.1 % (95-100)
[2018-01-04 00:18] LABS: ABG Base Excess -7.9 MMOL/L (-2.5-2.5); ABG HCO3 17.8 MMOL/L (20-26); ABG Oxygen Saturation 98.7 % (95-100); ABG PCO2 37.1 MM HG (35-48); ABG PO2 177.2 MM HG (80-95)
[2018-01-04 01:05] LABS: Apearance,Urine CLOUDY (Clear); Bilirubin,Urine Negative (Negative); Blood, Urine Large mg/dL (Negative); Glucose,Urine (UA) Negative (Negative); Granular Casts,Urine 7 /LPF (0-1); Hyaline Casts,Urine 85 /LPF (0-3); Ketones,Urine Negative (Negative); Mucus,Urine Occasional /LPF (Occasional); Nitrite,Urine Negative (Negative); Protein,Urine 100 MG/DL; RBC,Urine 64 /HPF (0-4); Urine Color Yellow (Yellow); Urine Specific Gravity 1.014 (1.001-1.035); Urine Urobilinogen < 2.0 EU/DL (0.2-1.0); WBC,Urine 11 /HPF (0-6)
[2018-01-04 03:10] LABS: ABG Base Excess -8.4 MMOL/L (-2.5-2.5); ABG HCO3 17.2 MMOL/L (20-26); ABG Oxygen Saturation 98.2 % (95-100); ABG PCO2 35.9 MM HG (35-48); ABG PH 7.299 (7.35-7.45); ABG PO2 144.8 MM HG (80-95); ABG TCO2 18.3 MMOL/L (23-27); Allen Test Positive; Pt O2 Delivery Device Ventilator
[2018-01-04 03:52] LABS: Basophils # 0.1 10*3/uL (0.0-0.2); Basophils % 0.9 % (0.0-0.8); Eosinophils # 0.2 10*3/uL (0.0-0.87); Hematocrit 31.3 VOL% (35.7-47.0); Hemoglobin 9.9 GM/DL (12.0-16.0); Immature Granulocytes Absolute 0.09 #; Lymphocytes # 1.3 10*3/uL (1.4-4.0); Lymphocytes % 14.1 % (21.3-54.2); Mean Corpuscular HGB Conc 31.6 GM/DL (32-36); Mean Corpuscular Hemoglobin 29 PG (27-34); Mean Corpuscular Volume 91.5 FL (87-102); Mean Platelet Volume 11.8 FL (9.6-12.0); Monocytes # 1.5 10*3/uL (0.11-0.8); Monocytes % 15.6 % (1.7-12.7); Neutrophils # 6.2 10*3/uL (1.4-7.4); Neutrophils % 66.4 % (38.7-73.9); Platelet Count 148 T/CUMM (130-400); Red Blood Count 3.42 MC/CUMM (3.8-5.5); Red Cell Distribution Width 16.9 % (9.3-17.3); White Blood Count 9.4 T/CUMM (4-12)
[2018-01-04 04:29] LABS: Osmolality,Calculated 288.2 MOS/KG (273-304)
[2018-01-04 05:40] LABS: Band Neutrophils 1 % (0-10); Eosinophils 3 % (0-10); Lymphocytes 15 % (20-55); Segmented Neutrophils 71 % (50-85); Total Cells Counted 100
[2018-01-04 05:41] LABS: Hypochromasia Slight; Ovalocytes 1+; Platelet Estimate Normal
[2018-01-04 11:01] LABS: Hepatitis A Ab IgM Quant 0.19 Index; Hepatitis A Ab IgM Result Negative (Negative); Hepatitis B Core IgM Quant 0.29 Index; Hepatitis B Core IgM Result Negative (Negative); Hepatitis B Surface Ag Quant 0.25 Index; Hepatitis B Surface Ag Result Negative (Negative); Hepatitis C Virus Ab Quant 0.14 Index; Hepatitis C Virus Ab Result Negative (Negative)
[2018-01-05 03:19] LABS: Allen Test Positive; Pt O2 Delivery Device Ventilator
[2018-01-05 03:20] LABS: ABG Base Excess -5.7 MMOL/L (-2.5-2.5); ABG HCO3 19.1 MMOL/L (20-26); ABG Oxygen Saturation 81.2 % (95-100); ABG PCO2 34.6 MM HG (35-48); ABG PH 7.359 (7.35-7.45); ABG PO2 54.1 MM HG (80-95); ABG TCO2 20.1 MMOL/L (23-27)
[2018-01-05 03:56] LABS: ABG Base Excess -6.3 MMOL/L (-2.5-2.5); ABG HCO3 17.9 MMOL/L (20-26); ABG Oxygen Saturation 98.3 % (95-100); ABG PCO2 30.4 MM HG (35-48); ABG PH 7.387 (7.35-7.45); ABG PO2 149.7 MM HG (80-95); ABG TCO2 18.8 MMOL/L (23-27)
[2018-01-05 04:05] LABS: Basophils # 0.1 10*3/uL (0.0-0.2); Basophils % 0.7 % (0.0-0.8); Eosinophils # 0.2 10*3/uL (0.0-0.87); Hematocrit 26.4 VOL% (35.7-47.0); Hemoglobin 8.4 GM/DL (12.0-16.0); Immature Granulocytes % 1.1 %; Immature Granulocytes Absolute 0.09 #; Lymphocytes # 0.8 10*3/uL (1.4-4.0); Lymphocytes % 9.5 % (21.3-54.2); Mean Corpuscular HGB Conc 31.8 GM/DL (32-36); Mean Corpuscular Hemoglobin 29 PG (27-34); Mean Corpuscular Volume 91.7 FL (87-102); Mean Platelet Volume 11.6 FL (9.6-12.0); Monocytes # 1.6 10*3/uL (0.11-0.8); Monocytes % 19.9 % (1.7-12.7); Neutrophils # 5.4 10*3/uL (1.4-7.4); Neutrophils % 66.8 % (38.7-73.9); Platelet Count 117 T/CUMM (130-400); Red Blood Count 2.88 MC/CUMM (3.8-5.5); Red Cell Distribution Width 17.2 % (9.3-17.3); White Blood Count 8.1 T/CUMM (4-12)
[2018-01-05 04:06] LABS: Calcium 7.2 MG/DL (8.5-10.1); Osmolality,Calculated 288.2 MOS/KG (273-304); Potassium 3.6 MMOL/L (3.5-5.1)
[2018-01-05 05:14] LABS: Band Neutrophils 2 % (0-10); Eosinophils 2 % (0-10); Lymphocytes 3 % (20-55); Metamyelocytes 1 %; Platelet Estimate Decreased; Segmented Neutrophils 71 % (50-85); Total Cells Counted 100
[2018-01-06 02:44] LABS: Pt O2 Delivery Device Ventilator
[2018-01-06 02:45] LABS: ABG Base Excess -8.1 MMOL/L (-2.5-2.5); ABG HCO3 17.8 MMOL/L (20-26); ABG Oxygen Saturation 95.9 % (95-100); ABG PCO2 25.3 MM HG (35-48); ABG PH 7.401 (7.35-7.45); ABG PO2 80.4 MM HG (80-95); ABG TCO2 14.6 MMOL/L (23-27)
[2018-01-06 04:08] LABS: Basophils % 0.4 % (0.0-0.8); Eosinophils # 0.1 10*3/uL (0.0-0.87); Eosinophils % 1.6 % (0.00-10.9); Hematocrit 25.1 VOL% (35.7-47.0); Hemoglobin 8.3 GM/DL (12.0-16.0); Immature Granulocytes % 0.9 %; Immature Granulocytes Absolute 0.08 #; Lymphocytes # 0.8 10*3/uL (1.4-4.0); Lymphocytes % 9.5 % (21.3-54.2); Mean Corpuscular HGB Conc 33.1 GM/DL (32-36); Mean Corpuscular Hemoglobin 30 PG (27-34); Mean Corpuscular Volume 89.6 FL (87-102); Mean Platelet Volume 11.5 FL (9.6-12.0); Monocytes # 1.4 10*3/uL (0.11-0.8); Monocytes % 16.4 % (1.7-12.7); Neutrophils # 6.1 10*3/uL (1.4-7.4); Neutrophils % 71.2 % (38.7-73.9); Platelet Count 113 T/CUMM (130-400); Red Cell Distribution Width 17.3 % (9.3-17.3); White Blood Count 8.6 T/CUMM (4-12)
[2018-01-06 04:47] LABS: Calcium 7.8 MG/DL (8.5-10.1); Potassium 3.4 MMOL/L (3.5-5.1)
[2018-01-06 04:55] LABS: Band Neutrophils 1 % (0-10); Eosinophils 2 % (0-10); Hypochromasia 1+; Lymphocytes 8 % (20-55); Platelet Estimate Decreased; Segmented Neutrophils 68 % (50-85); Total Cells Counted 100
[2018-01-06 04:56] LABS: Ovalocytes Slight
[2018-01-06 05:37] LABS: Calcium 8.2 MG/DL (8.5-10.1); Osmolality,Calculated 294.1 MOS/KG (273-304); Potassium 3.4 MMOL/L (3.5-5.1)
[2018-01-07 04:17] LABS: ABG Base Excess -4.4 MMOL/L (-2.5-2.5); ABG HCO3 20.8 MMOL/L (20-26); ABG Oxygen Saturation 97.4 % (95-100); ABG PCO2 28.8 MM HG (35-48); ABG PH 7.427 (7.35-7.45); ABG PO2 93.4 MM HG (80-95); ABG TCO2 17.1 MMOL/L (23-27); Allen Test Positive; Pt O2 Delivery Device Ventilator
[2018-01-07 08:17] LABS: Basophils # 0.1 10*3/uL (0.0-0.2); Basophils % 0.6 % (0.0-0.8); Eosinophils # 0.2 10*3/uL (0.0-0.87); Eosinophils % 1.6 % (0.00-10.9); Hematocrit 31.6 VOL% (35.7-47.0); Hemoglobin 10.7 GM/DL (12.0-16.0); Immature Granulocytes % 1.9 %; Immature Granulocytes Absolute 0.21 #; Lymphocytes # 0.7 10*3/uL (1.4-4.0); Lymphocytes % 6.8 % (21.3-54.2); Mean Corpuscular HGB Conc 33.9 GM/DL (32-36); Mean Corpuscular Hemoglobin 30 PG (27-34); Mean Platelet Volume 11.7 FL (9.6-12.0); Monocytes # 1.9 10*3/uL (0.11-0.8); Monocytes % 17.1 % (1.7-12.7); NRBC # 0.02 10*3/uL; Neutrophils # 7.9 10*3/uL (1.4-7.4); Platelet Count 108 T/CUMM (130-400); Red Blood Count 3.59 MC/CUMM (3.8-5.5); White Blood Count 10.9 T/CUMM (4-12)
[2018-01-07 08:38] LABS: Band Neutrophils 5 % (0-10); Hypochromasia 1+; Lymphocytes 9 % (20-55); Ovalocytes Slight; Platelet Estimate Decreased; Segmented Neutrophils 63 % (50-85); Total Cells Counted 100
[2018-01-07 08:39] LABS: Calcium 8.4 MG/DL (8.5-10.1); Osmolality,Calculated 287.1 MOS/KG (273-304); Potassium 3.7 MMOL/L (3.5-5.1); Total Protein 7.2 G/DL (6.4-8.3)
[2018-01-08 04:06] LABS: ABG Base Excess -1.6 MMOL/L (-2.5-2.5); ABG Oxygen Saturation 97.1 % (95-100); ABG PH 7.424 (7.35-7.45); ABG PO2 92.1 MM HG (80-95); ABG TCO2 20.2 MMOL/L (23-27)
[2018-01-08 04:24] LABS: Basophils % 0.1 % (0.0-0.8); Hematocrit 29.7 VOL% (35.7-47.0); Hemoglobin 9.7 GM/DL (12.0-16.0); Immature Granulocytes % 1.5 %; Immature Granulocytes Absolute 0.13 #; Lymphocytes # 0.4 10*3/uL (1.4-4.0); Lymphocytes % 4.9 % (21.3-54.2); Mean Corpuscular HGB Conc 32.7 GM/DL (32-36); Mean Corpuscular Hemoglobin 29 PG (27-34); Mean Corpuscular Volume 89.7 FL (87-102); Mean Platelet Volume 12.1 FL (9.6-12.0); Monocytes # 0.7 10*3/uL (0.11-0.8); Monocytes % 7.9 % (1.7-12.7); NRBC # 0.02 10*3/uL; Neutrophils # 7.3 10*3/uL (1.4-7.4); Neutrophils % 85.6 % (38.7-73.9); Red Blood Count 3.31 MC/CUMM (3.8-5.5); Red Cell Distribution Width 17.7 % (9.3-17.3); White Blood Count 8.5 T/CUMM (4-12)
[2018-01-08 04:40] LABS: Platelet Count 89 T/CUMM (130-400)
[2018-01-08 04:49] LABS: Albumin 2.8 G/DL (3.4-5.0); Bilirubin,Total 1.2 MG/DL (0.2-1.0); Calcium 8.4 MG/DL (8.5-10.1); Osmolality,Calculated 292.7 MOS/KG (273-304); Potassium 3.7 MMOL/L (3.5-5.1); Total Protein 6.8 G/DL (6.4-8.3)
[2018-01-08 04:59] LABS: Band Neutrophils 1 % (0-10); Lymphocytes 8 % (20-55); Segmented Neutrophils 86 % (50-85)
[2018-01-08 05:00] LABS: Hypochromasia Slight; Platelet Estimate Decreased
[2018-01-08 05:02] LABS: Ovalocytes 1+; Target Cells Few; Total Cells Counted 100
[2018-01-08 14:57] VITALS: BP 149/65
== END 2018-01-08 14:35 | DRG 219 ==
LOC: N.TELEN → SUATTDRO 18:49 → N.ICU 12-18 04:30 → N.TELEN 12-21 16:08 → N.CVR 12-25 08:05 → N.TELES 12-26 07:51 → N.CVR 12-26 10:34 → N.TELES 12-26 14:06 → N.ICU 01-03 20:43
PROVIDERS: ADMIT Internal Medicine; ATTEND Internal Medicine

== ENCOUNTER 2018-01-19 11:29 | Inpatient (IN) ==
[2018-01-19] MEDS ORDERED: CLINDAMYCIN INJ 300 MG in PREMIX 1 EACH IV SCH (14:30)
[2018-01-19] MEDS ORDERED: METOPROLOL TARTRATE 5 MG/5 ML VIAL IV ONE (14:49)
[2018-01-19] MEDS: METOPROLOL TARTRATE 5 MG/5 ML VIAL IV PRN ×2 (14:50→15:33)
[2018-01-19] MEDS ORDERED: MENTHOL/ZINC OXIDE OINT 71 GM JAR TOP PRN (15:27)
[2018-01-19] MEDS: DILTIAZEM 60 MG TABLET PO SCH ×2 (15:31→21:18)
[2018-01-19] MEDS ORDERED: MEROPENEM 500 MG in SODIUM CHLORIDE 0.9% 100 ML IV SCH (16:00)
[2018-01-19] MEDS ORDERED: ACETAMINOPHEN 325 MG TABLET PO PRN (16:06)
[2018-01-19] MEDS ORDERED: AMIODARONE INJ 150 MG in DEXTROSE 5% 100 ML IV ONE (17:30)
[2018-01-19] MEDS ORDERED: AMIODARONE 200 MG TABLET PO ONE (17:33)
[2018-01-19] MEDS ORDERED: MICAFUNGIN 100 MG in SODIUM CHLORIDE 0.9% 100 ML IV SCH (18:00)
[2018-01-19] MEDS ORDERED: AMIODARONE INJ 450 MG in DEXTROSE 5% 241 ML IV SCH (18:00)
[2018-01-19] MEDS: INSULIN REGULAR 100 UNIT/ML SUBCUT SCH ×2 (18:01→21:22)
[2018-01-19] MEDS: METOCLOPRAMIDE 10 MG/2 ML VIAL IV SCH (18:06)
[2018-01-19] MEDS: LACTULOSE 20 GM/30 ML UDCUP PO SCH ×2 (18:19→21:07)
[2018-01-19] MEDS: RIFAXIMIN 550 MG TABLET PO SCH (21:14)
[2018-01-19] MEDS: MONTELUKAST 10 MG TABLET PO SCH (21:18)
[2018-01-19] MEDS: METOPROLOL TARTRATE 25 MG TABLET PO SCH (21:19)
[2018-01-19] MEDS: buPROPion 100 MG TABLET PO SCH (21:20)
[2018-01-19] MEDS: AMIODARONE 200 MG TABLET PO SCH (21:21)
[2018-01-19] MEDS: CHLORHEXIDINE 0.12% ORAL RINSE 60 ML BOTTLE SWISH/SPIT SCH (21:22)
[2018-01-19] MEDS: PANTOPRAZOLE 40 MG VIAL IV SCH (21:26)
[2018-01-19 21:30] LABS: Apearance,Urine CLEAR (Clear); Bacteria,Urine Occasional /HPF (Few); Bilirubin,Urine Negative (Negative); Blood, Urine Small mg/dL (Negative); Glucose,Urine (UA) 50 mg/dL (Negative); Ketones,Urine Negative (Negative); Nitrite,Urine Negative (Negative); Protein,Urine Negative; RBC,Urine <1 /HPF (0-4); Renal Epithelial Cells,Urine Occasional /HPF (<1); Squamous Epithelial Cell,Urine Occasional /HPF (0-10); Urine Color Yellow (Yellow); Urine Specific Gravity 1.011 (1.001-1.035); Urine Urobilinogen < 2.0 EU/DL (0.2-1.0); WBC,Urine 2 /HPF (0-6)
[2018-01-20] MEDS: AMIODARONE INJ 450 MG in DEXTROSE 5% 241 ML IV SCH ×2 (00:09→05:03)
[2018-01-20] MEDS: METOCLOPRAMIDE 10 MG/2 ML VIAL IV SCH ×4 (00:16→17:43)
[2018-01-20 05:05] LABS: Basophils % 0.1 % (0.0-0.8); Hematocrit 29.6 VOL% (35.7-47.0); Hemoglobin 9.6 GM/DL (12.0-16.0); Immature Granulocytes % 1.4 %; Lymphocytes # 0.5 10*3/uL (1.4-4.0); Lymphocytes % 1.8 % (21.3-54.2); Mean Corpuscular HGB Conc 32.4 GM/DL (32-36); Mean Corpuscular Hemoglobin 30 PG (27-34); Mean Corpuscular Volume 93.4 FL (87-102); Mean Platelet Volume 13.6 FL (9.6-12.0); Monocytes # 2.3 10*3/uL (0.11-0.8); Monocytes % 8.2 % (1.7-12.7); NRBC # 0.02 10*3/uL; Neutrophils # 24.9 10*3/uL (1.4-7.4); Neutrophils % 88.5 % (38.7-73.9); Red Blood Count 3.17 MC/CUMM (3.8-5.5); Red Cell Distribution Width 17.1 % (9.3-17.3); White Blood Count 28.1 T/CUMM (4-12)
[2018-01-20 05:08] LABS: Platelet Count 68 T/CUMM (130-400)
[2018-01-20 05:19] LABS: Calcium 8.2 MG/DL (8.5-10.1); Osmolality,Calculated 353.1 MOS/KG (273-304); Potassium 4.6 MMOL/L (3.5-5.1)
[2018-01-20 05:22] LABS: Lymphocytes 1 % (20-55); Segmented Neutrophils 89 % (50-85); Total Cells Counted 100
[2018-01-20 05:23] LABS: Hypochromasia Slight; Microcytosis 1+
[2018-01-20 05:24] LABS: Ovalocytes Slight; Platelet Estimate Decreased; Polychromasia Slight
[2018-01-20] MEDS: INSULIN REGULAR 100 UNIT/ML SUBCUT SCH ×4 (08:30→21:23)
[2018-01-20] MEDS: CHLORHEXIDINE 0.12% ORAL RINSE 60 ML BOTTLE SWISH/SPIT SCH ×2 (08:58→21:23)
[2018-01-20] MEDS ORDERED: methylPREDNISolone SOD SUC 40 MG/1 ML VIAL IV SCH (09:00)
[2018-01-20] MEDS: INSULIN LISPRO PROTAMINE/LISPRO 75/25 100 UNIT/ML SUBCUT SCH ×2 (09:01→17:43)
[2018-01-20] MEDS: PANTOPRAZOLE 40 MG VIAL IV SCH ×2 (09:13→21:23)
[2018-01-20] MEDS: MULTIVITAMIN (CENTRUM) TABLET PO SCH (09:13)
[2018-01-20] MEDS: METOPROLOL TARTRATE 25 MG TABLET PO SCH ×2 (09:13→21:23)
[2018-01-20] MEDS: AMIODARONE 200 MG TABLET PO SCH ×2 (09:13→21:23)
[2018-01-20] MEDS: DILTIAZEM 60 MG TABLET PO SCH ×3 (09:13→21:22)
[2018-01-20] MEDS: LACTULOSE 20 GM/30 ML UDCUP PO SCH ×2 (09:13→09:31)
[2018-01-20] MEDS: RIFAXIMIN 550 MG TABLET PO SCH ×2 (09:14→21:24)
[2018-01-20] MEDS: MONTELUKAST 10 MG TABLET PO SCH ×2 (09:14→21:23)
[2018-01-20] MEDS: UDCUP PO SCH ×4 (09:31→21:23)
[2018-01-20] MEDS: LACTULOSE 20 GM/30 ML PO SCH ×4 (09:31→21:23)
[2018-01-20] MEDS ORDERED: MELATONIN 3 MG TABLET PO PRN (14:00)
[2018-01-20] MEDS ORDERED: diphenhydrAMINE CAP 50 MG CAPSULE PO PRN (14:39)
[2018-01-20] MEDS: ASPIRIN 325 MG TABLET PO SCH (15:01)
[2018-01-20] MEDS: buPROPion 100 MG TABLET PO SCH (21:23)
[2018-01-20] MEDS: ATORVASTATIN 20 MG TABLET PO SCH (21:23)
[2018-01-21] MEDS: METOCLOPRAMIDE 10 MG/2 ML VIAL IV SCH ×4 (00:23→16:59)
[2018-01-21 04:47] LABS: Basophils % 0.1 % (0.0-0.8); Hematocrit 29.7 VOL% (35.7-47.0); Hemoglobin 9.4 GM/DL (12.0-16.0); Immature Granulocytes % 1.4 %; Lymphocytes # 0.6 10*3/uL (1.4-4.0); Lymphocytes % 2.3 % (21.3-54.2); Mean Corpuscular HGB Conc 31.6 GM/DL (32-36); Mean Corpuscular Hemoglobin 30 PG (27-34); Mean Corpuscular Volume 93.4 FL (87-102); Mean Platelet Volume 13.7 FL (9.6-12.0); Monocytes # 2.4 10*3/uL (0.11-0.8); Monocytes % 8.7 % (1.7-12.7); Neutrophils # 24.6 10*3/uL (1.4-7.4); Neutrophils % 87.5 % (38.7-73.9); Red Blood Count 3.18 MC/CUMM (3.8-5.5); Red Cell Distribution Width 17.2 % (9.3-17.3); White Blood Count 28.1 T/CUMM (4-12)
[2018-01-21 04:51] LABS: Platelet Count 66 T/CUMM (130-400)
[2018-01-21 05:09] LABS: Lymphocytes 1 % (20-55); Segmented Neutrophils 97 % (50-85); Total Cells Counted 100
[2018-01-21 05:10] LABS: Acanthocytes Few; Hypochromasia 1+; Microcytosis 1+; Polychromasia Slight
[2018-01-21 05:11] LABS: Platelet Estimate Decreased
[2018-01-21 05:21] LABS: Calcium 8.4 MG/DL (8.5-10.1); Potassium 4.7 MMOL/L (3.5-5.1)
[2018-01-21] MEDS: PANTOPRAZOLE 40 MG VIAL IV SCH ×2 (09:48→22:01)
[2018-01-21] MEDS: INSULIN REGULAR 100 UNIT/ML SUBCUT SCH ×4 (09:48→22:00)
[2018-01-21] MEDS: INSULIN LISPRO PROTAMINE/LISPRO 75/25 100 UNIT/ML SUBCUT SCH ×2 (09:48→16:59)
[2018-01-21] MEDS: UDCUP PO SCH ×4 (09:49→22:00)
[2018-01-21] MEDS: LACTULOSE 20 GM/30 ML PO SCH ×4 (09:49→22:00)
[2018-01-21] MEDS: predniSONE 10 MG TABLET PO SCH (09:50)
[2018-01-21] MEDS: ASPIRIN 325 MG TABLET PO SCH (09:50)
[2018-01-21] MEDS: MULTIVITAMIN (CENTRUM) TABLET PO SCH (09:50)
[2018-01-21] MEDS: MONTELUKAST 10 MG TABLET PO SCH ×2 (09:50→22:01)
[2018-01-21] MEDS: METOPROLOL TARTRATE 25 MG TABLET PO SCH ×2 (09:50→22:01)
[2018-01-21] MEDS: DILTIAZEM 60 MG TABLET PO SCH ×3 (09:50→22:00)
[2018-01-21] MEDS: AMIODARONE 200 MG TABLET PO SCH ×2 (09:51→22:00)
[2018-01-21] MEDS: RIFAXIMIN 550 MG TABLET PO SCH ×2 (09:51→22:01)
[2018-01-21] MEDS: CHLORHEXIDINE 0.12% ORAL RINSE 60 ML BOTTLE SWISH/SPIT SCH ×2 (09:51→22:01)
[2018-01-21] MEDS: ASPIRIN EC 325 MG TABLET PO SCH (09:54)
[2018-01-21] MEDS: LINACLOTIDE 145 MCG CAPSULE PO SCH (13:10)
[2018-01-21] MEDS: buPROPion 100 MG TABLET PO SCH (22:01)
[2018-01-21] MEDS: ATORVASTATIN 20 MG TABLET PO SCH (22:01)
[2018-01-22] MEDS: METOCLOPRAMIDE 10 MG/2 ML VIAL IV SCH ×2 (00:51→05:54)
[2018-01-22 04:57] LABS: Basophils % 0.1 % (0.0-0.8); Eosinophils # 0.1 10*3/uL (0.0-0.87); Eosinophils % 0.3 % (0.00-10.9); Hematocrit 30.4 VOL% (35.7-47.0); Immature Granulocytes Absolute 0.25 #; Lymphocytes # 0.7 10*3/uL (1.4-4.0); Lymphocytes % 2.7 % (21.3-54.2); Mean Corpuscular HGB Conc 32.9 GM/DL (32-36); Mean Corpuscular Hemoglobin 31 PG (27-34); Mean Corpuscular Volume 93.3 FL (87-102); Mean Platelet Volume 12.9 FL (9.6-12.0); Monocytes # 2.5 10*3/uL (0.11-0.8); Monocytes % 9.5 % (1.7-12.7); NRBC # 0.02 10*3/uL; Neutrophils # 22.7 10*3/uL (1.4-7.4); Neutrophils % 86.4 % (38.7-73.9); Platelet Count 58 T/CUMM (130-400); Red Blood Count 3.26 MC/CUMM (3.8-5.5); Red Cell Distribution Width 17.5 % (9.3-17.3); White Blood Count 26.2 T/CUMM (4-12)
[2018-01-22 05:25] LABS: Calcium 8.3 MG/DL (8.5-10.1); Osmolality,Calculated 339.8 MOS/KG (273-304); Potassium 4.6 MMOL/L (3.5-5.1)
[2018-01-22 06:10] LABS: Anisocytosis 1+; Band Neutrophils 3 % (0-10); Eosinophils 1 % (0-10); Lymphocytes 2 % (20-55); Macrocytosis 1+; Platelet Estimate Decreased; Polychromasia Few; Segmented Neutrophils 86 % (50-85); Total Cells Counted 100
[2018-01-22] MEDS: PANTOPRAZOLE 40 MG TABLET PO SCH ×2 (08:13→18:59)
[2018-01-22] MEDS: LINACLOTIDE 145 MCG CAPSULE PO SCH (08:14)
[2018-01-22] MEDS: METOCLOPRAMIDE 10 MG/10 ML UDCUP PO SCH ×2 (08:15→12:20)
[2018-01-22] MEDS: INSULIN REGULAR 100 UNIT/ML SUBCUT SCH ×4 (08:15→21:18)
[2018-01-22] MEDS: INSULIN LISPRO PROTAMINE/LISPRO 75/25 100 UNIT/ML SUBCUT SCH ×2 (08:23→17:22)
[2018-01-22] MEDS: DILTIAZEM 60 MG TABLET PO SCH ×3 (09:26→21:16)
[2018-01-22] MEDS: MULTIVITAMIN (CENTRUM) TABLET PO SCH (09:26)
[2018-01-22] MEDS: AMIODARONE 200 MG TABLET PO SCH ×2 (09:27→21:17)
[2018-01-22] MEDS: MONTELUKAST 10 MG TABLET PO SCH ×2 (09:27→21:17)
[2018-01-22] MEDS: predniSONE 10 MG TABLET PO SCH (09:27)
[2018-01-22] MEDS: METOPROLOL TARTRATE 25 MG TABLET PO SCH ×2 (09:27→21:17)
[2018-01-22] MEDS: RIFAXIMIN 550 MG TABLET PO SCH ×2 (09:27→21:17)
[2018-01-22] MEDS: ASPIRIN EC 325 MG TABLET PO SCH (09:27)
[2018-01-22] MEDS: LACTULOSE 20 GM/30 ML PO SCH ×4 (09:28→21:18)
[2018-01-22] MEDS: UDCUP PO SCH ×4 (09:28→21:18)
[2018-01-22] MEDS: CHLORHEXIDINE 0.12% ORAL RINSE 60 ML BOTTLE SWISH/SPIT SCH ×2 (09:30→21:21)
[2018-01-22] MEDS: buPROPion 100 MG TABLET PO SCH (21:17)
[2018-01-23] MEDS: PANTOPRAZOLE 40 MG TABLET PO SCH ×2 (06:44→20:51)
[2018-01-23 07:31] LABS: Albumin 2.4 G/DL (3.4-5.0); Bilirubin,Direct 0.66 MG/DL (0.0-0.20); Bilirubin,Indirect 1.6 MG/DL (0.0-1.0); Bilirubin,Total 2.3 MG/DL (0.2-1.0); Total Protein 6.3 G/DL (6.4-8.3)
[2018-01-23 07:38] LABS: Calcium 8.1 MG/DL (8.5-10.1); Osmolality,Calculated 336.1 MOS/KG (273-304); Potassium 4.3 MMOL/L (3.5-5.1)
[2018-01-23] MEDS ORDERED: AMIODARONE 200 MG TABLET PO SCH (08:24)
[2018-01-23 08:54] LABS: Basophils % 0.1 % (0.0-0.8); Eosinophils # 0.3 10*3/uL (0.0-0.87); Eosinophils % 1.5 % (0.00-10.9); Hematocrit 31.9 VOL% (35.7-47.0); Hemoglobin 10.2 GM/DL (12.0-16.0); Immature Granulocytes % 0.9 %; Lymphocytes # 0.6 10*3/uL (1.4-4.0); Lymphocytes % 2.7 % (21.3-54.2); Mean Corpuscular Hemoglobin 30 PG (27-34); Mean Corpuscular Volume 94.9 FL (87-102); Monocytes # 1.8 10*3/uL (0.11-0.8); Monocytes % 7.7 % (1.7-12.7); Neutrophils # 20.1 10*3/uL (1.4-7.4); Neutrophils % 87.1 % (38.7-73.9); Platelet Count 49 T/CUMM (130-400); Red Blood Count 3.36 MC/CUMM (3.8-5.5); Red Cell Distribution Width 17.5 % (9.3-17.3); White Blood Count 23.1 T/CUMM (4-12)
[2018-01-23 09:12] LABS: Eosinophils 2 % (0-10); Lymphocytes 1 % (20-55); Segmented Neutrophils 91 % (50-85); Total Cells Counted 100
[2018-01-23 09:13] LABS: Hypochromasia 1+; Microcytosis Slight; Platelet Estimate Decreased
[2018-01-23] MEDS: LINACLOTIDE 145 MCG CAPSULE PO SCH (09:19)
[2018-01-23] MEDS: ONDANSETRON 4 MG/2 ML VIAL IV PRN (09:29)
[2018-01-23] MEDS: INSULIN LISPRO PROTAMINE/LISPRO 75/25 100 UNIT/ML SUBCUT SCH ×2 (10:16→17:38)
[2018-01-23] MEDS: INSULIN REGULAR 100 UNIT/ML SUBCUT SCH ×4 (10:17→20:51)
[2018-01-23] MEDS: ASPIRIN EC 325 MG TABLET PO SCH (11:41)
[2018-01-23] MEDS: DILTIAZEM 30 MG TABLET PO SCH ×3 (11:42→20:51)
[2018-01-23] MEDS: LACTULOSE 20 GM/30 ML PO SCH ×4 (11:43→20:51)
[2018-01-23] MEDS: METOPROLOL TARTRATE 25 MG TABLET PO SCH ×2 (11:43→20:59)
[2018-01-23] MEDS: UDCUP PO SCH ×4 (11:43→20:51)
[2018-01-23] MEDS: CHLORHEXIDINE 0.12% ORAL RINSE 60 ML BOTTLE SWISH/SPIT SCH ×3 (11:44→20:59)
[2018-01-23] MEDS: predniSONE 10 MG TABLET PO SCH (11:44)
[2018-01-23] MEDS: MONTELUKAST 10 MG TABLET PO SCH ×2 (11:44→20:51)
[2018-01-23] MEDS: MULTIVITAMIN (CENTRUM) TABLET PO SCH (11:54)
[2018-01-23] MEDS: SODIUM CHLORIDE 0.45% 1,000 ML IV SCH (16:24)
[2018-01-23] MEDS: METOCLOPRAMIDE 10 MG/10 ML UDCUP PO SCH (20:51)
[2018-01-24] MEDS: SODIUM CHLORIDE 0.45% 1,000 ML IV SCH ×4 (00:36→20:58)
[2018-01-24 03:19] LABS: Basophils % 0.1 % (0.0-0.8); Eosinophils # 0.3 10*3/uL (0.0-0.87); Eosinophils % 1.3 % (0.00-10.9); Hematocrit 29.2 VOL% (35.7-47.0); Hemoglobin 8.9 GM/DL (12.0-16.0); Immature Granulocytes % 0.6 %; Immature Granulocytes Absolute 0.12 #; Lymphocytes # 0.5 10*3/uL (1.4-4.0); Lymphocytes % 2.5 % (21.3-54.2); Mean Corpuscular HGB Conc 30.5 GM/DL (32-36); Mean Corpuscular Hemoglobin 30 PG (27-34); Monocytes # 1.5 10*3/uL (0.11-0.8); Monocytes % 7.6 % (1.7-12.7); Neutrophils # 17.4 10*3/uL (1.4-7.4); Neutrophils % 87.9 % (38.7-73.9); Platelet Count 55 T/CUMM (130-400); Red Blood Count 3.01 MC/CUMM (3.8-5.5); Red Cell Distribution Width 17.2 % (9.3-17.3); White Blood Count 19.7 T/CUMM (4-12)
[2018-01-24 03:35] LABS: INR 1.4; PT Patient Result 14.5 SECS; Partial Thromboplastin Time 27.8 SECS (0-40)
[2018-01-24 03:48] LABS: Band Neutrophils 2 % (0-10); Calcium 7.8 MG/DL (8.5-10.1); Lymphocytes 4 % (20-55); Macrocytosis 2+; Osmolality,Calculated 331.5 MOS/KG (273-304); Platelet Estimate Decreased; Potassium 4.1 MMOL/L (3.5-5.1); Segmented Neutrophils 92 % (50-85); Total Cells Counted 100
[2018-01-24 04:56] LABS: Albumin 2.3 G/DL (3.4-5.0); Bilirubin,Direct 0.8 MG/DL (0.0-0.20); Bilirubin,Indirect 1.6 MG/DL (0.0-1.0); Bilirubin,Total 2.4 MG/DL (0.2-1.0); Total Protein 5.9 G/DL (6.4-8.3)
[2018-01-24] MEDS: PANTOPRAZOLE 40 MG TABLET PO SCH ×2 (06:05→18:12)
[2018-01-24] MEDS: INSULIN LISPRO PROTAMINE/LISPRO 75/25 100 UNIT/ML SUBCUT SCH ×2 (09:19→16:52)
[2018-01-24] MEDS: INSULIN REGULAR 100 UNIT/ML SUBCUT SCH ×4 (09:19→20:50)
[2018-01-24] MEDS: METOCLOPRAMIDE 10 MG/10 ML UDCUP PO SCH ×4 (09:20→20:53)
[2018-01-24] MEDS: CHLORHEXIDINE 0.12% ORAL RINSE 60 ML BOTTLE SWISH/SPIT SCH ×2 (09:21→20:51)
[2018-01-24] MEDS: METOPROLOL TARTRATE 25 MG TABLET PO SCH ×2 (09:22→20:50)
[2018-01-24] MEDS: ASPIRIN EC 325 MG TABLET PO SCH (09:22)
[2018-01-24] MEDS: DILTIAZEM 30 MG TABLET PO SCH ×3 (09:22→20:50)
[2018-01-24] MEDS: MULTIVITAMIN (CENTRUM) TABLET PO SCH (09:22)
[2018-01-24] MEDS: predniSONE 10 MG TABLET PO SCH (09:22)
[2018-01-24] MEDS: UDCUP PO SCH ×4 (09:23→20:51)
[2018-01-24] MEDS: LACTULOSE 20 GM/30 ML PO SCH ×4 (09:23→20:51)
[2018-01-25 05:11] LABS: Basophils % 0.1 % (0.0-0.8); Eosinophils # 0.6 10*3/uL (0.0-0.87); Eosinophils % 2.6 % (0.00-10.9); Hemoglobin 9.3 GM/DL (12.0-16.0); Immature Granulocytes % 0.9 %; Lymphocytes # 0.6 10*3/uL (1.4-4.0); Lymphocytes % 2.6 % (21.3-54.2); Mean Corpuscular HGB Conc 32.1 GM/DL (32-36); Mean Corpuscular Hemoglobin 30 PG (27-34); Mean Corpuscular Volume 93.2 FL (87-102); Monocytes # 1.6 10*3/uL (0.11-0.8); Monocytes % 6.9 % (1.7-12.7); Neutrophils # 20.2 10*3/uL (1.4-7.4); Neutrophils % 86.9 % (38.7-73.9); Platelet Count 56 T/CUMM (130-400); Red Blood Count 3.11 MC/CUMM (3.8-5.5); Red Cell Distribution Width 16.8 % (9.3-17.3); White Blood Count 23.2 T/CUMM (4-12)
[2018-01-25 05:31] LABS: Calcium 7.5 MG/DL (8.5-10.1); Osmolality,Calculated 312.4 MOS/KG (273-304); Potassium 3.7 MMOL/L (3.5-5.1)
[2018-01-25 05:33] LABS: Albumin 2.2 G/DL (3.4-5.0); Bilirubin,Direct 0.75 MG/DL (0.0-0.20); Bilirubin,Indirect 0.9 MG/DL (0.0-1.0); Bilirubin,Total 1.6 MG/DL (0.2-1.0)
[2018-01-25] MEDS: PANTOPRAZOLE 40 MG TABLET PO SCH ×2 (06:00→18:31)
[2018-01-25 06:09] LABS: Band Neutrophils 3 % (0-10); Segmented Neutrophils 94 % (50-85); Total Cells Counted 100
[2018-01-25 06:10] LABS: Acanthocytes Few; Anisocytosis 1+; Platelet Estimate Decreased
[2018-01-25] MEDS: SODIUM CHLORIDE 0.45% 1,000 ML IV SCH (06:39)
[2018-01-25] MEDS: METOCLOPRAMIDE 10 MG/10 ML UDCUP PO SCH ×4 (09:11→20:18)
[2018-01-25] MEDS: INSULIN REGULAR 100 UNIT/ML SUBCUT SCH ×4 (09:12→20:19)
[2018-01-25] MEDS: INSULIN LISPRO PROTAMINE/LISPRO 75/25 100 UNIT/ML SUBCUT SCH ×2 (09:12→16:52)
[2018-01-25] MEDS: MULTIVITAMIN (CENTRUM) TABLET PO SCH (09:13)
[2018-01-25] MEDS: METOPROLOL TARTRATE 25 MG TABLET PO SCH ×2 (09:13→20:18)
[2018-01-25] MEDS: DILTIAZEM 30 MG TABLET PO SCH ×3 (09:14→20:18)
[2018-01-25] MEDS: predniSONE 10 MG TABLET PO SCH (09:14)
[2018-01-25] MEDS: ASPIRIN EC 325 MG TABLET PO SCH (09:14)
[2018-01-25] MEDS: CHLORHEXIDINE 0.12% ORAL RINSE 60 ML BOTTLE SWISH/SPIT SCH ×2 (09:15→20:21)
[2018-01-25] MEDS: LACTULOSE 20 GM/30 ML PO SCH ×4 (09:16→20:21)
[2018-01-25] MEDS: UDCUP PO SCH ×4 (09:16→20:21)
[2018-01-25] MEDS ORDERED: FUROSEMIDE INJ 160 MG in SODIUM CHLORIDE 0.9% 50 ML IV ONE (10:00)
[2018-01-25] MEDS: metOLazone 5 MG TABLET PO SCH (11:16)
[2018-01-25] MEDS: ALBUTEROL/IPRATROPIUM 3 ML NEB RESP TX PRN ×2 (19:48→23:25)
[2018-01-26] MEDS: ALBUTEROL/IPRATROPIUM 3 ML NEB RESP TX PRN ×3 (03:40→15:05)
[2018-01-26 05:43] LABS: Albumin 2.2 G/DL (3.4-5.0); Bilirubin,Direct 0.81 MG/DL (0.0-0.20); Bilirubin,Indirect 1.6 MG/DL (0.0-1.0); Bilirubin,Total 2.4 MG/DL (0.2-1.0); Total Protein 6.1 G/DL (6.4-8.3)
[2018-01-26] MEDS: PANTOPRAZOLE 40 MG TABLET PO SCH ×2 (06:00→18:22)
[2018-01-26] MEDS: INSULIN LISPRO PROTAMINE/LISPRO 75/25 100 UNIT/ML SUBCUT SCH ×2 (08:48→16:51)
[2018-01-26] MEDS: MULTIVITAMIN (CENTRUM) TABLET PO SCH (08:49)
[2018-01-26] MEDS: INSULIN REGULAR 100 UNIT/ML SUBCUT SCH ×4 (08:49→20:33)
[2018-01-26] MEDS: METOCLOPRAMIDE 10 MG/10 ML UDCUP PO SCH ×4 (08:49→20:33)
[2018-01-26] MEDS: DILTIAZEM 30 MG TABLET PO SCH ×3 (08:49→20:33)
[2018-01-26] MEDS: METOPROLOL TARTRATE 25 MG TABLET PO SCH ×2 (08:50→20:33)
[2018-01-26] MEDS: predniSONE 10 MG TABLET PO SCH (08:51)
[2018-01-26] MEDS: metOLazone 5 MG TABLET PO SCH (08:51)
[2018-01-26] MEDS: CHLORHEXIDINE 0.12% ORAL RINSE 60 ML BOTTLE SWISH/SPIT SCH ×2 (08:51→20:34)
[2018-01-26] MEDS: ASPIRIN EC 325 MG TABLET PO SCH (08:52)
[2018-01-26] MEDS: UDCUP PO SCH ×4 (08:52→20:34)
[2018-01-26] MEDS: LACTULOSE 20 GM/30 ML PO SCH ×4 (08:52→20:34)
[2018-01-26 09:00] LABS: Calcium 7.8 MG/DL (8.5-10.1); Osmolality,Calculated 315.2 MOS/KG (273-304); Potassium 3.7 MMOL/L (3.5-5.1)
[2018-01-26] MEDS: FUROSEMIDE 40 MG/4 ML VIAL IV SCH ×3 (10:43→15:30)
[2018-01-26] MEDS ORDERED: SODIUM CHLORIDE 0.9% 100 ML IV ONE (15:19)
[2018-01-26] MEDS: ALBUTEROL/IPRATROPIUM 3 ML NEB RESP TX SCH ×2 (19:14→23:46)
[2018-01-27] MEDS: ALBUTEROL/IPRATROPIUM 3 ML NEB RESP TX SCH ×6 (03:44→22:58)
[2018-01-27 05:23] LABS: Calcium 7.5 MG/DL (8.5-10.1); Osmolality,Calculated 298.1 MOS/KG (273-304); Potassium 3.9 MMOL/L (3.5-5.1)
[2018-01-27] MEDS: PANTOPRAZOLE 40 MG TABLET PO SCH (06:10)
[2018-01-27] MEDS: FUROSEMIDE 40 MG/4 ML VIAL IV SCH ×2 (08:08→16:44)
[2018-01-27] MEDS: DILTIAZEM 30 MG TABLET PO SCH ×3 (09:56→21:29)
[2018-01-27] MEDS: metOLazone 5 MG TABLET PO SCH (09:57)
[2018-01-27] MEDS: ASPIRIN EC 325 MG TABLET PO SCH (09:57)
[2018-01-27] MEDS: METOPROLOL TARTRATE 25 MG TABLET PO SCH ×2 (09:57→21:29)
[2018-01-27] MEDS: predniSONE 10 MG TABLET PO SCH (09:57)
[2018-01-27] MEDS: INSULIN LISPRO PROTAMINE/LISPRO 75/25 100 UNIT/ML SUBCUT SCH ×2 (09:58→19:18)
[2018-01-27] MEDS: LACTULOSE 20 GM/30 ML PO SCH ×4 (09:58→21:29)
[2018-01-27] MEDS: UDCUP PO SCH ×4 (09:58→21:29)
[2018-01-27] MEDS: METOCLOPRAMIDE 10 MG/10 ML UDCUP PO SCH ×2 (09:58→15:04)
[2018-01-27] MEDS: INSULIN REGULAR 100 UNIT/ML SUBCUT SCH ×4 (09:59→21:44)
[2018-01-27] MEDS: MULTIVITAMIN (CENTRUM) TABLET PO SCH (12:45)
[2018-01-27] MEDS: ONDANSETRON 4 MG/2 ML VIAL IV PRN (17:42)
[2018-01-27] MEDS ORDERED: ALBUTEROL/IPRATROPIUM 3 ML NEB RESP TX PRN (17:52)
[2018-01-27] MEDS: CHLORHEXIDINE 0.12% ORAL RINSE 60 ML BOTTLE SWISH/SPIT SCH ×2 (19:17→21:30)
[2018-01-27] MEDS ORDERED: SODIUM BICARBONATE 50 MEQ/50 ML SYRINGE IV ONE ×2 (20:11→20:41)
[2018-01-27] MEDS: PANTOPRAZOLE 40 MG VIAL IV SCH (21:40)
[2018-01-27] MEDS: METOCLOPRAMIDE 10 MG/2 ML VIAL IV SCH (23:52)
[2018-01-28] MEDS: ALBUTEROL/IPRATROPIUM 3 ML NEB RESP TX SCH ×6 (03:02→21:06)
[2018-01-28 04:07] LABS: Basophils % 0.1 % (0.0-0.8); Eosinophils # 0.4 10*3/uL (0.0-0.87); Eosinophils % 2.2 % (0.00-10.9); Hematocrit 27.9 VOL% (35.7-47.0); Hemoglobin 9.4 GM/DL (12.0-16.0); Immature Granulocytes Absolute 0.16 #; Lymphocytes # 0.5 10*3/uL (1.4-4.0); Lymphocytes % 2.9 % (21.3-54.2); Mean Corpuscular HGB Conc 33.7 GM/DL (32-36); Mean Corpuscular Hemoglobin 30 PG (27-34); Mean Corpuscular Volume 88.6 FL (87-102); Monocytes # 1.1 10*3/uL (0.11-0.8); Monocytes % 6.5 % (1.7-12.7); Neutrophils # 14.2 10*3/uL (1.4-7.4); Neutrophils % 87.3 % (38.7-73.9); Platelet Count 49 T/CUMM (130-400); Red Blood Count 3.15 MC/CUMM (3.8-5.5); Red Cell Distribution Width 16.8 % (9.3-17.3); White Blood Count 16.3 T/CUMM (4-12)
[2018-01-28 04:24] LABS: Calcium 7.7 MG/DL (8.5-10.1); Osmolality,Calculated 305.7 MOS/KG (273-304); Potassium 3.1 MMOL/L (3.5-5.1)
[2018-01-28 04:25] LABS: Albumin 2.2 G/DL (3.4-5.0); Bilirubin,Direct 0.7 MG/DL (0.0-0.20); Bilirubin,Indirect 1.1 MG/DL (0.0-1.0); Bilirubin,Total 1.8 MG/DL (0.2-1.0); Total Protein 6.1 G/DL (6.4-8.3)
[2018-01-28 04:47] LABS: Eosinophils 4 % (0-10); Hypochromasia 1+; Lymphocytes 1 % (20-55); Ovalocytes Slight; Platelet Estimate Decreased; Segmented Neutrophils 90 % (50-85); Total Cells Counted 100
[2018-01-28] MEDS: METOCLOPRAMIDE 10 MG/2 ML VIAL IV SCH ×3 (05:24→17:01)
[2018-01-28] MEDS: INSULIN REGULAR 100 UNIT/ML SUBCUT SCH ×4 (07:50→21:42)
[2018-01-28] MEDS: INSULIN LISPRO PROTAMINE/LISPRO 75/25 100 UNIT/ML SUBCUT SCH ×2 (07:50→16:55)
[2018-01-28] MEDS: METOCLOPRAMIDE 10 MG/10 ML UDCUP PO SCH (08:36)
[2018-01-28] MEDS: PANTOPRAZOLE 40 MG TABLET PO SCH (08:36)
[2018-01-28] MEDS: METOPROLOL TARTRATE 25 MG TABLET PO SCH ×2 (11:23→21:30)
[2018-01-28] MEDS: predniSONE 10 MG TABLET PO SCH (11:29)
[2018-01-28] MEDS ORDERED: CALCIUM GLUCONATE 1,000 MG/10 ML VIAL IV ONE (11:30)
[2018-01-28] MEDS ORDERED: ALBUMIN 25% 25 GM in PREMIX 1 EACH IV ONE ×2 (11:30→14:30)
[2018-01-28] MEDS ORDERED: HEPARIN 10,000 UNIT/10 ML VIAL IV SCH (11:30)
[2018-01-28] MEDS: MULTIVITAMIN (CENTRUM) TABLET PO SCH (11:30)
[2018-01-28] MEDS: PANTOPRAZOLE 40 MG VIAL IV SCH ×2 (11:30→21:31)
[2018-01-28] MEDS: ASPIRIN EC 325 MG TABLET PO SCH (11:31)
[2018-01-28] MEDS: metOLazone 5 MG TABLET PO SCH (11:33)
[2018-01-28] MEDS: UDCUP PO SCH ×4 (11:35→21:29)
[2018-01-28] MEDS: LACTULOSE 20 GM/30 ML PO SCH ×4 (11:35→21:29)
[2018-01-28] MEDS: CHLORHEXIDINE 0.12% ORAL RINSE 60 ML BOTTLE SWISH/SPIT SCH ×2 (11:35→21:32)
[2018-01-28] MEDS: ONDANSETRON 4 MG/2 ML VIAL IV PRN ×2 (14:55→21:42)
[2018-01-28 15:56] LABS: Hematocrit 23.2 VOL% (35.7-47.0); Hemoglobin 7.8 GM/DL (12.0-16.0)
[2018-01-28] MEDS ORDERED: SODIUM CHLORIDE 0.9% 1,000 ML IV PRN (16:37)
[2018-01-29] MEDS: METOCLOPRAMIDE 10 MG/2 ML VIAL IV SCH ×4 (02:00→17:25)
[2018-01-29] MEDS: ALBUTEROL/IPRATROPIUM 3 ML NEB RESP TX SCH ×6 (02:49→19:35)
[2018-01-29 05:50] LABS: Basophils % 0.2 % (0.0-0.8); Eosinophils # 0.5 10*3/uL (0.0-0.87); Hematocrit 25.3 VOL% (35.7-47.0); Hemoglobin 8.4 GM/DL (12.0-16.0); Immature Granulocytes Absolute 0.13 #; Lymphocytes # 0.6 10*3/uL (1.4-4.0); Lymphocytes % 4.4 % (21.3-54.2); Mean Corpuscular HGB Conc 33.2 GM/DL (32-36); Mean Corpuscular Hemoglobin 30 PG (27-34); Monocytes % 8.2 % (1.7-12.7); Neutrophils # 10.3 10*3/uL (1.4-7.4); Neutrophils % 82.2 % (38.7-73.9); Red Blood Count 2.78 MC/CUMM (3.8-5.5); Red Cell Distribution Width 17.2 % (9.3-17.3); White Blood Count 12.5 T/CUMM (4-12)
[2018-01-29] MEDS ORDERED: SODIUM CHLORIDE 0.9% 1,000 ML IV PRN (05:52)
[2018-01-29 05:54] LABS: Platelet Count 35 T/CUMM (130-400)
[2018-01-29 06:11] LABS: Band Neutrophils 3 % (0-10); Burr Cells Slight; Eosinophils 6 % (0-10); Lymphocytes 3 % (20-55); Platelet Estimate Decreased; Segmented Neutrophils 82 % (50-85); Total Cells Counted 100
[2018-01-29] MEDS ORDERED: LACTULOSE 20 GM/30 ML UDCUP NG PRN (07:18)
[2018-01-29] MEDS ORDERED: LINACLOTIDE 145 MCG CAPSULE PO SCH (07:30)
[2018-01-29] MEDS: INSULIN LISPRO PROTAMINE/LISPRO 75/25 100 UNIT/ML SUBCUT SCH ×2 (09:29→16:45)
[2018-01-29] MEDS: INSULIN REGULAR 100 UNIT/ML SUBCUT SCH ×4 (09:29→22:19)
[2018-01-29] MEDS: METOPROLOL TARTRATE 25 MG TABLET PO SCH ×2 (09:48→22:19)
[2018-01-29] MEDS: ASPIRIN EC 325 MG TABLET PO SCH (09:48)
[2018-01-29] MEDS: MULTIVITAMIN (CENTRUM) TABLET PO SCH (09:48)
[2018-01-29] MEDS: predniSONE 10 MG TABLET PO SCH (09:48)
[2018-01-29] MEDS: LACTULOSE 20 GM/30 ML UDCUP NG SCH ×2 (09:48→16:50)
[2018-01-29] MEDS: PANTOPRAZOLE 40 MG VIAL IV SCH ×2 (09:49→22:20)
[2018-01-29] MEDS: CHLORHEXIDINE 0.12% ORAL RINSE 60 ML BOTTLE SWISH/SPIT SCH ×2 (09:49→22:19)
[2018-01-29 10:35] LABS: INR 1.4; Partial Thromboplastin Time 36.9 SECS (0-40)
[2018-01-29 18:29] VITALS: BP 160/73
[2018-01-29] MEDS ORDERED: LACTULOSE 20 GM/30 ML UDCUP NG SCH (20:00)
== END 2018-01-29 22:55 | disposition hospice, home (50) | DRG 441 ==
LOC: N.ICU 13:06 → N.TELES 01-22 18:31 → N.CC 01-27 20:38
PROVIDERS: ADMIT Internal Medicine Pulmonary Disease; ATTEND Internal Medicine Pulmonary Disease